=== PATIENT | female | born 1950 | race Asian ===

== ENCOUNTER → 2025-01-19 | Outpatient (CLI) | payer MEDICARE, MEDICAID, SELFPAY ==
[2025-01-19 08:44] LABS: Basophils % (Auto) 0 % (0-2.5); Eosinophils # (Auto) 0.1 Thou/mm3 (0.0-0.5); Eosinophils % (Auto) 2 % (0-10); Hematocrit 32.5 % (36.0-46.0); Hemoglobin 9.4 g/dL (12.0-16.0); Immature Granulocytes % (Auto) 1 % (0-0); Immature Granulocytes Auto 0.03 Thou/mm3 (0.00-0.00); Immature Reticulocyte Fraction 29.9 % (3.0-15.9); Lymphocytes # (Auto) 1.9 Thou/mm3 (1.0-4.8); Lymphocytes % (Auto) 34 % (10-50); Mean Corpuscular HGB Conc 28.9 g/dl (31.0-37.0); Mean Corpuscular Hemoglobin 18.8 pg (25.0-35.0); Mean Corpuscular Volume 65 fL (80-100); Monocytes # (Auto) 0.4 Thou/mm3 (0.0-0.8); Monocytes % (Auto) 7 % (0-12); Neutrophils # (Auto) 3.2 Thou/mm3 (1.8-7.7); Neutrophils % (Auto) 57 % (37-80); Nucleated Red Blood Cell % 0 /100 WBC (0); Platelet Count 245 Thou/mm3 (140-440); RDW Standard Deviation 51.8 fL (36.4-46.3); Reticulocyte % (Auto) 4.4 % (0.5-1.5); Reticulocyte Hgb Content 20.5 pg (28.0-35.0); White Blood Count 5.6 Thou/mm3 (3.6-11.0)
[2025-01-19 09:08] LABS: Folate > 24.00 ng/mL (>5.38); Vitamin B12 582 pg/mL (211-911)
[2025-01-19 09:11] LABS: Alanine Aminotransferase 14 U/L (10-49); Albumin, Serum 4.2 gm/dL (3.4-4.8); Albumin/Globulin Ratio 1.4 (1.2-2.2); Alkaline Phosphatase 54 U/L (46-116); Anion Gap 8 (7-16); Aspartate Amino Transferase 16 U/L (0-34); BUN/Creatinine Ratio 33 Ratio (12-20); Bilirubin,Total 2.2 mg/dL (0.3-1.2); Blood Urea Nitrogen 20 mg/dL (9-23); Calcium 9.3 mg/dL (8.3-10.6); Calcium (Corrected) 9.3 mg/dL (8.5-10.1); Carbon Dioxide 27.9 mMol/L (20.0-31.0); Chloride 105 mMol/L (98-107); Creatinine (Component) 0.6 mg/dL (0.6-1.3); Globulin 2.9 gm/dL (2.3-3.5); Glucose 124 mg/dL (74-106); Osmolality,Calculated 284 (275-295); Potassium 3.9 mMol/L (3.4-5.1); Sodium 141 mMol/L (136-145); Total Protein 7.1 gm/dL (5.7-8.2); eGFR > 60 See Note
[2025-01-19 09:20] LABS: Ferritin 482 ng/mL (7.3-270.7); Iron 204 mcg/dL (50-170); Percent Iron Saturation 73 % (20-55); Total Iron Binding Capacity 279 mcg/dL (250-425); Unsaturated Iron Binding 75 (225-295)
[2025-01-19 14:27] LABS: Path Review Blood Smear Sent to Pathologist
== END | disposition home or self-care (01) ==
LOC: COPL 07:35
PROVIDERS: PCP Family Medicine; Referring Provider Nurse Practitioner Family; Visit Provider Nurse Practitioner Family
DX: D64.9 Anemia, unspecified (principal)
CPT/HCPCS: 36415; 80053; 82607; 82728; 82746; 83540; 83550; 85025; 85046

== ENCOUNTER 2025-01-25 08:56 | Outpatient (RCR) | payer MEDICARE, MEDICAID, SELFPAY | END 2025-01-28 23:59 | disposition home or self-care (01) | LOC: SCTC 08:56 | PROVIDERS: PCP Family Medicine; Referring Provider Family Medicine; Visit Provider Nurse Practitioner Family | DX: D50.9 Iron deficiency anemia, unspecified (principal); D56.0 Alpha thalassemia | CPT/HCPCS: 99212; G0463 ==

== ENCOUNTER → 2025-02-21 | Outpatient (CLI) | payer MEDICARE, MEDICAID, SELFPAY ==
[2025-02-21 08:47] LABS: Basophils % (Auto) 1 % (0-2.5); Eosinophils # (Auto) 0.1 Thou/mm3 (0.0-0.5); Eosinophils % (Auto) 2 % (0-10); Hematocrit 33.4 % (36.0-46.0); Hemoglobin 9.4 g/dL (12.0-16.0); Immature Granulocytes % (Auto) 0 % (0-0); Immature Granulocytes Auto 0.02 Thou/mm3 (0.00-0.00); Immature Reticulocyte Fraction 27.6 % (3.0-15.9); Lymphocytes # (Auto) 1.8 Thou/mm3 (1.0-4.8); Lymphocytes % (Auto) 33 % (10-50); Mean Corpuscular HGB Conc 28.1 g/dl (31.0-37.0); Mean Corpuscular Hemoglobin 18.8 pg (25.0-35.0); Mean Corpuscular Volume 67 fL (80-100); Monocytes # (Auto) 0.4 Thou/mm3 (0.0-0.8); Monocytes % (Auto) 7 % (0-12); Neutrophils # (Auto) 3.2 Thou/mm3 (1.8-7.7); Neutrophils % (Auto) 57 % (37-80); Nucleated Red Blood Cell % 0 /100 WBC (0); Platelet Count 264 Thou/mm3 (140-440); Reticulocyte % (Auto) 4.1 % (0.5-1.5); White Blood Count 5.5 Thou/mm3 (3.6-11.0)
[2025-02-21 09:05] LABS: Folate > 24.00 ng/mL (>5.38); Vitamin B12 605 pg/mL (211-911)
[2025-02-21 09:07] LABS: Alanine Aminotransferase 14 U/L (10-49); Albumin, Serum 4.3 gm/dL (3.4-4.8); Albumin/Globulin Ratio 1.4 (1.2-2.2); Alkaline Phosphatase 51 U/L (46-116); Anion Gap 9 (7-16); Aspartate Amino Transferase 16 U/L (0-34); BUN/Creatinine Ratio 28 Ratio (12-20); Bilirubin,Total 2.4 mg/dL (0.3-1.2); Blood Urea Nitrogen 14 mg/dL (9-23); Calcium 9.6 mg/dL (8.3-10.6); Calcium (Corrected) 9.6 mg/dL (8.5-10.1); Carbon Dioxide 29.5 mMol/L (20.0-31.0); Chloride 105 mMol/L (98-107); Creatinine (Component) 0.5 mg/dL (0.6-1.3); Globulin 3.1 gm/dL (2.3-3.5); Glucose 120 mg/dL (74-106); Osmolality,Calculated 286 (275-295); Potassium 3.7 mMol/L (3.4-5.1); Sodium 143 mMol/L (136-145); Total Protein 7.4 gm/dL (5.7-8.2); eGFR > 60 See Note
[2025-02-21 09:14] LABS: Ferritin 543 ng/mL (7.3-270.7); Iron 126 mcg/dL (50-170); Percent Iron Saturation 44 % (20-55); Total Iron Binding Capacity 285 mcg/dL (250-425); Unsaturated Iron Binding 159 (225-295)
== END | disposition home or self-care (01) ==
LOC: SCTO 07:36
PROVIDERS: PCP Family Medicine; Referring Provider Nurse Practitioner Family; Visit Provider Nurse Practitioner Family
DX: D64.9 Anemia, unspecified (principal)
CPT/HCPCS: 36415; 80053; 82607; 82728; 82746; 83540; 83550; 85025; 85046

== ENCOUNTER 2025-02-22 14:11 | Outpatient (RCR) | payer MEDICARE, MEDICAID, SELFPAY | END 2025-02-28 23:59 | disposition home or self-care (01) | LOC: SCTC 14:11 | PROVIDERS: PCP Family Medicine; Referring Provider Nurse Practitioner Family; Visit Provider Nurse Practitioner Family | DX: D56.0 Alpha thalassemia (principal) | CPT/HCPCS: 99212; G0463 ==

== ENCOUNTER → 2025-02-24 | Outpatient (CLI) | payer MEDICARE, MEDICAID, SELFPAY ==
[2025-02-24 14:11] LABS: Misc Send Out* See Sep Rpt
[2025-02-24 15:35] LABS: Basophils % (Auto) 0 % (0-2.5); Eosinophils # (Auto) 0.2 Thou/mm3 (0.0-0.5); Eosinophils % (Auto) 2 % (0-10); Hematocrit 32.3 % (36.0-46.0); Hemoglobin 9.1 g/dL (12.0-16.0); Immature Granulocytes % (Auto) 0 % (0-0); Immature Granulocytes Auto 0.02 Thou/mm3 (0.00-0.00); Lymphocytes # (Auto) 2.4 Thou/mm3 (1.0-4.8); Lymphocytes % (Auto) 33 % (10-50); Mean Corpuscular HGB Conc 28.2 g/dl (31.0-37.0); Mean Corpuscular Volume 67 fL (80-100); Monocytes # (Auto) 0.5 Thou/mm3 (0.0-0.8); Monocytes % (Auto) 7 % (0-12); Neutrophils % (Auto) 57 % (37-80); Nucleated Red Blood Cell % 0 /100 WBC (0); Platelet Count 278 Thou/mm3 (140-440); RDW Standard Deviation 53.3 fL (36.4-46.3); Red Blood Count 4.79 Miln/mm3 (4.00-5.20); White Blood Count 7.1 Thou/mm3 (3.6-11.0)
[2025-02-24 16:17] LABS: Alanine Aminotransferase 19 U/L (10-49); Albumin, Serum 4.2 gm/dL (3.4-4.8); Albumin/Globulin Ratio 1.5 (1.2-2.2); Alkaline Phosphatase 52 U/L (46-116); Anion Gap 11 (7-16); Aspartate Amino Transferase 20 U/L (0-34); BUN/Creatinine Ratio 20 Ratio (12-20); Bilirubin,Total 2.5 mg/dL (0.3-1.2); Blood Urea Nitrogen 14 mg/dL (9-23); Calcium 9.2 mg/dL (8.3-10.6); Calcium (Corrected) 9.2 mg/dL (8.5-10.1); Carbon Dioxide 29.1 mMol/L (20.0-31.0); Chloride 103 mMol/L (98-107); Creatinine (Component) 0.7 mg/dL (0.6-1.3); Globulin 2.8 gm/dL (2.3-3.5); Glucose 178 mg/dL (74-106); Osmolality,Calculated 289 (275-295); Potassium 3.6 mMol/L (3.4-5.1); Sodium 143 mMol/L (136-145); eGFR > 60 See Note
== END | disposition home or self-care (01) ==
LOC: SCTO 13:45
PROVIDERS: PCP Family Medicine; Referring Provider Nurse Practitioner Family; Visit Provider Nurse Practitioner Family
DX: D64.9 Anemia, unspecified (principal)
CPT/HCPCS: 36415; 80053; 81256; 81257; 83020; 85014; 85018; 85025; 85041

== ENCOUNTER → 2025-03-09 | Outpatient (CLI) | payer MEDICARE, MEDICAID, SELFPAY ==
--- NOTE | 2025-03-09 10:30 | XR_ITS ---
Examination: MRI abdomen without intravenous contrast. Exam date and time: March 09, 2025 1140 hrs. Indications iron overload Technique: Multiple axial, sagittal and coronal images of the abdomen have been obtained with the Siemens high-resolution 1.5 [place] MRI scanner. Images obtained included T2 weighted fat suppressed sagittal sections, TR 3500, TE 46, T2 weighted coronal fat suppressed images, TR 3050, TE 84, T2-weighted transverse fat suppressed images, TR 30-60, TE 63, proton density transverse images, TR 4720, TE 46, and T1 weighted coronal images, TR 560, TE 13. Findings: Hepatomegaly 16 cm with marked decrease signal intensity on the precontrast images consistent with iron deposition No focal liver lesions No gallstones Spleen not enlarged No extra hepatic biliary tract dilatation No pancreatic mass or peripancreatic edema No ascites No hydronephrosis Impression: Diffuse iron deposition in the liver
== END | disposition home or self-care (01) ==
LOC: SMRI 09:47
PROVIDERS: PCP Family Medicine; Referring Provider Nurse Practitioner Family; Visit Provider Nurse Practitioner Family
DX: D64.9 Anemia, unspecified (principal)
CPT/HCPCS: 74181

== ENCOUNTER → 2025-04-18 | Outpatient (CLI) | payer MEDICARE, MEDICAID, SELFPAY | END | disposition home or self-care (01) | LOC: SCTO 06:45 | PROVIDERS: PCP Family Medicine; Referring Provider Nurse Practitioner Family; Visit Provider Nurse Practitioner Family | DX: D64.9 Anemia, unspecified (principal) | CPT/HCPCS: 36415; 82105 ==

== ENCOUNTER 2025-04-19 13:06 | Outpatient (RCR) | payer MEDICARE, MEDICAID, SELFPAY | END 2025-04-30 23:59 | disposition home or self-care (01) | LOC: SCTC 13:06 | PROVIDERS: PCP Family Medicine; Referring Provider Family Medicine; Visit Provider Nurse Practitioner Family | DX: D56.0 Alpha thalassemia (principal); E83.119 Hemochromatosis, unspecified | CPT/HCPCS: 99212; G0463 ==

== ENCOUNTER 2025-05-03 23:43 | Inpatient (IN) | payer MEDICARE, MEDICAID, SELFPAY ==
[2025-05-03 23:48] VITALS: O2SAT 91
[2025-05-03 23:50] VITALS: BP 148/86; PULSE 84; RESP 22; TEMP 37.1; O2SAT 91; BMI 26.7
[2025-05-04] VITALS (17 sets, daily range): BP systolic 135–165; BP diastolic 65–91; PULSE 70–104; RESP 14–94; TEMP 36.2–37.1; O2SAT 91–99; BMI 25.7
--- NOTE | 2025-05-04 00:05 | XR_ITS ---
Examination: AP chest single view Technique one AP portable upright chest single view Date and time: May 04, 2025 12:42 AM Comparison April 10, 2024 INDICATIONS: Cough and shortness of breath for one week FINDINGS: Mild accentuation right perihilar markings and increased markings right base Mild opacity in the left upper lobe and possibly in the lingular segment Mild prominence left ventricle Ectatic thoracic aorta Impression : Soft areas of bilateral pneumonia on the current study
--- NOTE | 2025-05-04 00:05 | EKG_ITS ---
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
--- NOTE | 2025-05-04 00:07 | PD.EDRME ---
Rapid Medical Screening Exam RME Arrival date/time: 05/03/25 23:43 75F with history of Alpha Thalassemia, CAD and afib presents to ED with 1 week of cough and SOB. Patient is on day 5 of a Z-bravo and hasn't improved. Chief Complaint: Shortness of Breath/Dyspnea Time Seen by Provider: 05/04/25 00:39 Vital signs: Vital Signs Temperature 98.7 F 05/03/25 23:50 Pulse Rate 84 05/03/25 23:50 Respiratory Rate 22 H 05/03/25 23:50 Blood Pressure 148/86 H 05/03/25 23:50 Pulse Oximetry (%) 91 L 05/03/25 23:50 Oxygen Delivery Method Room Air 05/03/25 23:50
[2025-05-04] MEDS: ALBUTEROL/IPRATROPIUM (Duoneb) RT SOL 3 ML NEBU INH ×6 (00:31→22:33)
[2025-05-04 00:49] LABS: Lactate (Lactic Acid) 1.1 mMol/L (0.4-2.0)
[2025-05-04 01:03] LABS: Basophils % (Auto) 0 % (0-2.5); Eosinophils # (Auto) 0.1 Thou/mm3 (0.0-0.5); Eosinophils % (Auto) 1 % (0-10); Hematocrit 29.5 % (36.0-46.0); Hemoglobin 8.9 g/dL (12.0-16.0); Immature Granulocytes % (Auto) 0 % (0-0); Immature Granulocytes Auto 0.02 Thou/mm3 (0.00-0.00); Lymphocytes # (Auto) 2.4 Thou/mm3 (1.0-4.8); Lymphocytes % (Auto) 42 % (10-50); Mean Corpuscular HGB Conc 30.2 g/dl (31.0-37.0); Mean Corpuscular Hemoglobin 18.6 pg (25.0-35.0); Mean Corpuscular Volume 62 fL (80-100); Monocytes # (Auto) 0.7 Thou/mm3 (0.0-0.8); Monocytes % (Auto) 12 % (0-12); Neutrophils # (Auto) 2.6 Thou/mm3 (1.8-7.7); Neutrophils % (Auto) 45 % (37-80); Nucleated Red Blood Cell % 0 /100 WBC (0); Platelet Count 191 Thou/mm3 (140-440); RDW Standard Deviation 45.7 fL (36.4-46.3); Red Blood Count 4.78 Miln/mm3 (4.00-5.20); White Blood Count 5.7 Thou/mm3 (3.6-11.0)
[2025-05-04 01:24] LABS: B-Type Natriuretic Peptide 26 pg/mL (0-100)
--- NOTE | 2025-05-04 01:27 | PD.EDSOB ---
ED SOB =RME/HPI General Chief Complaint: Shortness of Breath/Dyspnea Stated Complaint: SOB Time Seen by Provider: 05/04/25 00:39 Arrival date/time: 05/03/25 23:43 RME / HPI RME / HPI Narrative: 05/03/25 23:43 75F with history of Alpha Thalassemia, CAD and afib presents to ED with 1 week of cough and SOB. Patient is on day 5 of a Z-bravo and hasn't improved. Dr. Rothman?s Main ED Evaluation: 75 y/o female with Hx of HTN, A Fib, and a-Thalassemia presents to ED c/o shortness of breath, productive cough, sweats, and generalized weakness x 1 week. Patient was seen on Friday and prescribed Zithromax and has not yet completed regimen. Denies chest pain, abdominal pain, or headache. Also denies history of Asthma or COPD. No other concerns or complaints expressed at this time. Related Data Home Medications ?Medication ?Instructions ?Recorded ?Confirmed metoprolol succinate 50 mg 25 mg PO QDAY hypertension 12/31/22 05/04/25 tablet,extended release 24 hr losartan 25 mg tablet 25 mg PO DAILY 05/04/25 05/04/25 Allergies Allergy/AdvReac Type Severity Reaction Status Date / Time Iodinated Contrast Media Allergy Intermediate Rash Verified 05/04/25 21:08 adhesive tape Allergy Mild Rash Verified 05/04/25 21:08 amoxicillin Allergy Mild rash Verified 05/04/25 21:08 sulfamethoxazole Allergy Mild dry mouth Verified 05/04/25 21:08 trimethoprim Allergy Mild dry mouth Verified 05/04/25 21:08 Review of Systems Review of Systems Systems Reviewed: All systems reviewed, normal except as documented Past Medical History Past Medical History CARDIAC: Positive Cardiac Disorders, Atrial Fibrillation and Hypertension GENITOURINARY: Positive Genitourinary Disorders and Kidney Stones MUSCULOSKELETAL: Positive Musculoskeletal Disorders and Osteoporosis HEMATOLOGIC: Positive Blood Disorders, Anemia and Thalassemia OTHER HISTORY: Positive Autoimmune Disease and Chicken Pox Family History FAMILY HISTORY: Positive Family Respiratory Disorders, Family Cardiac Disorders and Family Cancer Surgical History SURGICAL: Positive Lumpectomy ED Exam Narrative Physical exam: GENERAL APPEARANCE: alert and oriented x 4, well-developed, well-nourished, no acute distress VITALS: All vitals were reviewed and the pulse ox is 99% on room air, which is normal according to my interpretation. HEENT: Normocephalic, atraumatic; pupils equal, round, reactive to light; EOMI; mucous membranes pink, moist; oropharynx clear NECK: Supple LUNGS: Rales, rhonchi, and mild wheezes to the bilateral bases, right worse than the left HEART: Tachycardic in 110's when speaking, regular rhythm; normal S1, S2; no murmurs ABDOMEN: non distended; normal BS; soft, no tenderness, no guarding, no rebound; no masses, no organomegaly, no hernia BACK: no CVA tenderness EXTREMITIES: atraumatic; no edema NEUROLOGIC: awake; alert and oriented x4; cranial nerves II-XII grossly intact; no focal sensory or motor deficits PSYCHIATRIC: appropriate mood and affect SKIN: warm, dry, normal color; no rashes Course Course Course Narrative: CXR is ordered for determining the etiology of shortness of breath. Quality Measures none Orders Category Date Time Status Bedside Blood Glucose NOW Care 05/04/25 01:30 Active Bedside COVID-19 Antigen Test NOW Care 05/04/25 00:09 Active Bedside Influenza A&B Antigen Test NOW Care 05/04/25 00:09 Completed Continuous Pulse Oximetry NOW Care 05/04/25 01:31 Completed EKG (ED ONLY) *Do not use* NOW Care 05/04/25 00:05 Completed Insert IV NOW Care 05/04/25 00:05 Active Insert IV NOW Care 05/04/25 01:30 Active EKG (ED Only) Stat Exams 05/04/25 00:05 Draft XR chest 1V Stat Exams 05/04/25 01:29 Completed XR chest 1V portable Stat Exams 05/04/25 00:05 Completed B-Type Natriuretic Peptide Stat Lab 05/04/25 00:38 Completed Blood Culture (Lab) Stat Lab 05/04/25 01:50 Results CBC Stat Lab 05/04/25 00:38 Completed Comprehensive Metabolic Panel Stat Lab 05/04/25 00:38 Completed Lactate (Lactic Acid) Stat Lab 05/04/25 00:38 Completed Partial Thromboplastin Time Stat Lab 05/04/25 01:52 Completed Procalcitonin Stat Lab 05/04/25 00:38 Completed Prothrombin Time with INR Stat Lab 05/04/25 01:52 Completed Troponin I Stat Lab 05/04/25 00:38 Completed Urinalysis Stat Lab 05/04/25 01:49 Completed Urine Culture Stat Lab 05/04/25 01:49 Received Albuterol/Ipratr Rt Emma [Duoneb Rt Emma] Med 05/04/25 00:08 Discontinued 3 ml INH X1 ONE Doxycycline Inj [Vibramycin Inj] 100 mg Med 05/04/25 01:34 Discontinued Sodium Chloride 0.9% (Pop) [NS 0.9% mini bag] 100 ml IV X1 MethylPREDNISolone.* [SoluMEDROL Inj] Med 05/04/25 01:28 Discontinued 125 mg IVP X1 ONE Oseltamivir [Tamiflu] Med 05/04/25 02:46 Discontinued 75 mg PO X1 ONE Sodium Chloride 0.9% 1000 ml [Ns] 1,000 ml Med 05/04/25 01:34 Discontinued IV 999 mls/hr cefTRIAXone/D5w 1gm IV premix [Rocephin/D5w 1gm IV Med 05/04/25 06:15 Discontinued premix] 1 gm in 50 ml IV X1 Oxygen Delivery NOW RT 05/04/25 00:05 Active Vital Signs Vital signs: Vital Signs Temperature 98.7 F 05/03/25 23:50 Pulse Rate 84 05/03/25 23:50 Respiratory Rate 22 H 05/03/25 23:50 Blood Pressure 148/86 H 05/03/25 23:50 Pulse Oximetry (%) 91 L 05/03/25 23:50 Oxygen Delivery Method Room Air 05/03/25 23:50 Shortness of Breath / Dyspnea MDM Narrative MDM Narrative:: Scribe Attestation: Jeanette Blum am scribing for and in the presence of Dr. Rothman. Provider Notation: Although this document has been carefully reviewed, there may still be some phonetic and other typographical errors.? These errors are purely grammatical due to imperfections in the software program and should not be construed in any way to? compromise the substance of the patient's medical care during this visit. Patient data External records reviewed:: [facility] previous records (Reviewed prior ED records from 04/10/24. Patient was seen for Dizziness.) Clinical information provided by:: patient Social determinants that could affect healthcare access:: none Patient has the following chronic illnesses:: Atrial Fibrillation, Hypertension, Kidney Stones, Osteoporosis, Anemia and Thalassemia How is presenting disease/condition affected by chronic disease/condition?: exacerbated by Evaluation data The following diagnostics were reviewed and interpreted by me:: lab results, radiology exam(s) and EKG tracing(s) Lab and/or radiology exams considered but not ordered:: None Interpretation Summary: RADIOLOGY Chest X-Ray: CXR shows normal cardiac silhouette, normal sharp diaphragmatic edge, BL lower lobe infiltrates, normal costophrenic angles, according to my interpretation. LABS Hematology: Hgb 8.9, Hct 29.5%, MCV 62, MCH 18.6, MCHC 30.2, Immature Gran # 0.02. Chemistry: Estim Creat Clear calc 51.6, BUN/Creatinine Ratio 25, Glucose 152, Total Bilirubin 2.5, AST 37. Medications / Prescriptions Medications or Prescriptions considered but not ordered:: None Medication administrations:: Medication Administration History Acetaminophen (Acetaminophen 325 Mg Tablet) 650 mg PO Q6H PRN; Protocol PRN Reason: pain and Fever >100.4 Stop: 06/03/25 04:01 Hydrocodone Bitart/Acetaminophen (Hydrocodone/Apap 5/325 Tablet) 1 tab PO Q4HR PRN PRN Reason: PAIN SCALE 4-10(Mod-Sev Stop: 05/09/25 04:01 Albuterol/Ipratropium (Albuterol/Ipratropium (Duoneb) Rt Emma 3 Ml Nebu) 3 ml INH Q4HRRT CASSI Stop: 06/03/25 06:59 Last Admin: 05/05/25 02:35 Dose: 3 ml Documented By: Admin: 05/04/25 22:33 Dose: 3 ml Documented By: Admin: 05/04/25 19:06 Dose: 3 ml Documented By: Admin: 05/04/25 14:19 Dose: 3 ml Documented By: Admin: 05/04/25 10:45 Dose: 3 ml Documented By: Admin: 05/04/25 06:50 Dose: 3 ml Documented By: JORDAN Azithromycin (Azithromycin 250 Mg Tablet) 500 mg PO QDAY [facility] Stop: 05/11/25 08:59 Last Admin: 05/04/25 08:32 Dose: 500 mg Documented By: LUZ MARIA Guaifenesin (Guaifenesin Syrup 200 Mg/10 Ml Udc) 100 mg PO TID [facility]; Protocol Stop: 06/03/25 13:59 Last Admin: 05/04/25 21:08 Dose: 100 mg Documented By: Admin: 05/04/25 14:15 Dose: 100 mg Documented By: LUZ MARIA Heparin Sodium (Porcine) (Heparin Sod Inj 5000 Unit/Ml Vial) 5,000 unit SC Q8HR [facility] Stop: 05/18/25 05:59 Last Admin: 05/04/25 21:09 Dose: 5,000 unit Documented By: DEEPTHI Co-signed By: VINCE Admin: 05/04/25 14:15 Dose: 5,000 unit Documented By: LUZ MARIA Co-signed By: EUNICE Admin: 05/04/25 06:26 Dose: 5,000 unit Documented By: Co-signed By: MADAY Losartan Potassium (Losartan Potassium 25 Mg Tablet) 25 mg PO HS [facility] Stop: 06/03/25 20:59 Last Admin: 05/04/25 21:02 Dose: Not Given Documented By: DEEPTHI Non-Admin Reason: Other, see note Comments: at 1523, medication was already given per dayshift nurse. Metoprolol Succinate (Metoprolol Succinate Xl 25 Mg Tabcr) 25 mg PO QDAY [facility] Stop: 06/03/25 15:14 Last Admin: 05/04/25 15:19 Dose: 25 mg Documented By: LUZ MARIA Ondansetron HCl (Ondansetron Inj 2 Mg/Ml Inj 2 Ml) 4 mg IVP Q6H PRN; Protocol PRN Reason: NAUSEA OR VOMITING Stop: 06/03/25 04:01 Oseltamivir Phosphate (Oseltamivir 75 Mg Capsule) 75 mg PO BID [facility] Stop: 05/11/25 20:59 Last Admin: 05/04/25 21:08 Dose: 75 mg Documented By: DEEPTHI Discontinued Medications Albuterol/Ipratropium (Albuterol/Ipratropium (Duoneb) Rt Emma 3 Ml Nebu) 3 ml INH X1 ONE Stop: 05/04/25 00:09 Last Admin: 05/04/25 00:31 Dose: 3 ml Documented By: NIRMALA Ceftriaxone Sodium/Dextrose (Rocephin/D5w 1gm Iv Premix) 1 gm in 50 mls @ 100 mls/hr IV X1 ONE Stop: 05/04/25 06:44 Last Admin: 05/04/25 06:26 Dose: 100 mls/hr Documented By: Sodium Chloride (Ns) 1,000 mls @ 999 mls/hr IV .Q1H1M ONE Stop: 05/04/25 02:34 Last Infusion: 05/04/25 02:56 Dose: Infused Documented By: Admin: 05/04/25 01:52 Dose: 999 mls/hr Documented By: CVL Doxycycline Hyclate 100 mg/ (Sodium Chloride) 100 mls @ 100 mls/hr IV X1 ONE Stop: 05/04/25 02:33 Last Infusion: 05/04/25 02:55 Dose: Infused Documented By: Admin: 05/04/25 02:05 Dose: 100 mls/hr Documented By: BEATRIZ Losartan Potassium (Losartan Potassium 25 Mg Tablet) 25 mg PO QDAY [facility] Stop: 06/03/25 15:14 Last Admin: 05/04/25 15:23 Dose: 25 mg Documented By: LUZ MARIA Methylprednisolone Sodium Succinate (Methylprednisolone Sod Succ 62.5 Mg/Ml 2ml Vial) 125 mg IVP X1 ONE Stop: 05/04/25 01:29 Last Admin: 05/04/25 01:49 Dose: 125 mg Documented By: CVL Oseltamivir Phosphate (Oseltamivir 75 Mg Capsule) 75 mg PO X1 ONE Stop: 05/04/25 02:47 Last Admin: 05/04/25 03:12 Dose: 75 mg Documented By: BEATRIZ Oseltamivir Phosphate (Oseltamivir 6 Mg/Ml) 75 mg PO QDAY [facility] Stop: 05/12/25 08:59 Potassium Chloride (Potassium Chloride 20 Meq Tabcr) 40 meq PO X1 ONE Stop: 05/04/25 08:09 Last Admin: 05/04/25 08:32 Dose: 40 meq Documented By: LUZ MARIA Sodium Chloride (Sodium Chloride Rt 10% 15 Ml Nebu) 5 ml INH X1 ONE Stop: 05/04/25 05:14 See above if any Consultations Consultation(s) initiated? (list below): Yes Consultation #1 (Physician, Specialty, Details): Dr. Douglas made aware of the patient?s HPI, PMHx, lab and/or radiology results. Treatment plan was discussed. Will admit for further evaluation and management. Accepts patient for admission. Time: 02:58 Diagnosis Shortness of Breath Differential Diagnosis: congestive heart failure, community acquired pneumonia, pulmonary embolism and other (Bronchitis, Bronchiolitis) Most likely diagnosis given after review of the tests above:: See clinical impression below Admission Indicated Admission indicated?: indicated Explain why admission is indicated or not indicated:: Hypoxia, Pneumonia, Sepsis Admission Request Was there a request for admission?: Yes Admission Attestation Admission request attestation: Discussed case with [] from Hospitalist service regarding admission. Discussed patients ED course, exam findings, labs, and radiology results. The Hospitalist [agrees,declines] to accept the patient for admission. Disposition Plan Disposition Plan: Admit Critical Care Time Critical Care Time Critical Care Time: Yes Total Critical Care Time (min.): 60 Attestation: The high probability of sudden, clinically significant deterioration in the patient?s condition required the highest level of my preparedness to intervene urgently. The services I provided to this patient were to treat and/or prevent clinically significant deterioration. Services included the following: chart data review, reviewing nursing notes and/or old charts, documentation time, small business consultant collaboration regarding findings and treatment options, medication orders and management, direct patient care, vital sign assessments and ordering, interpreting and reviewing diagnostic studies and lab tests. Aggregate critical care time includes only time during which I was engaged in work directly related to the patient?s care, as described above, whether at bedside or elsewhere in the Emergency Department. It did not include time spent performing other reported procedures or the services of residents, students, nurses or physician assistants. Discharge Plan Plan Patient Disposition: Admit Acute Care w/in Hospital Discharge Disposition comment: MED TELE Patient condition on transfer: Stable Problem List Clinical Impression: Hypoxia, Pneumonia, Influenza A, Sepsis
--- NOTE | 2025-05-04 01:29 | XR_ITS ---
Examination: Lateral chest single view TECHNIQUE: Upright lateral chest single view Date and time: May 04, 2025 0134 hours INDICATIONS: Coughing one week. FINDINGS: Opacity in the lingular segment and anterior segment left upper lobe consistent with pneumonia Mild prominence of ventricles IMPRESSION: Pneumonia in the lingular segment left upper lobe and anterior segment left upper lobe
[2025-05-04 01:32] LABS: Alanine Aminotransferase 24 U/L (10-49); Albumin, Serum 4.4 gm/dL (3.4-4.8); Albumin/Globulin Ratio 1.5 (1.2-2.2); Alkaline Phosphatase 51 U/L (46-116); Anion Gap 13 (7-16); Aspartate Amino Transferase 37 U/L (0-34); BUN/Creatinine Ratio 25 Ratio (12-20); Bilirubin,Total 2.5 mg/dL (0.3-1.2); Blood Urea Nitrogen 20 mg/dL (9-23); Calcium 8.7 mg/dL (8.3-10.6); Calcium (Corrected) 8.7 mg/dL (8.5-10.1); Carbon Dioxide 26.3 mMol/L (20.0-31.0); Chloride 104 mMol/L (98-107); Creatinine (Component) 0.8 mg/dL (0.6-1.3); Estimated Creatinine Clearance 51.6 mL/min (>60); Globulin 2.9 gm/dL (2.3-3.5); Glucose 152 mg/dL (74-106); Osmolality,Calculated 290 (275-295); Potassium 3.8 mMol/L (3.4-5.1); Procalcitonin 0.13 ng/ml (0.0-0.49); Sodium 143 mMol/L (136-145); Total Protein 7.3 gm/dL (5.7-8.2); Troponin I < 0.020 ng/mL (0.0-0.045); eGFR > 60 See Note
[2025-05-04] MEDS: MethylPREDNISolone SOD SUCC 62.5 MG/ML 2ML VIAL 125 MG IVP (01:49)
[2025-05-04] MEDS: SODIUM CHLORIDE 0.9% 1000 ML 1,000 ML 999 ML IV (01:52)
[2025-05-04 02:03] LABS: Collection Type, Urine Clean Catch
[2025-05-04] MEDS: DOXYCYCLINE INJ 100 MG in SODIUM CHLORIDE 0.9% (POP) 100 ML IV (02:05)
[2025-05-04 02:07] LABS: Bilirubin,Urine Negative (Negative); Blood,Urine 2+ (Negative); Clarity,Urine Clear (Clear/Hazy); Color,Urine Yellow (Lt Yel-Yel); Glucose, Urine Negative (Negative); Ketones,Urine Trace (Negative); Leukocyte Esterase,Urine Negative (Negative); Nitrite,Urine Negative (Negative); Protein,Urine 1+ (Neg - Trace); RBC,Urine 6 /hpf (0-3); Specific Gravity,Urine 1.023 (1.001-1.035); Squamous Epithelial Cell,Urine 2 /hpf (0-5); Urobilinogen,Urine Negative mg/dL (0.0-1.0); WBC,Urine 2 /hpf (0-5)
[2025-05-04 02:20] LABS: Partial Thromboplastin Time 30.8 Seconds (22.0-36.0); Prothrombin Time 11.1 Seconds (9.0-12.2)
[2025-05-04] MEDS: OSELTAMIVIR 75 MG CAPSULE PO ×2 (03:12→21:08)
--- NOTE | 2025-05-04 04:09 | PD.RESHP ---
Documentation for date of: 05/04/25 HPI History of Present Illness Chief complaint: SOB and cough History of present illness: 75-year-old female with past medical history of alpha thalassemia, osteoporosis, hyperlipidemia, hypertension, and questionable A-fib was admitted to the hospital on 05/04/2025 after coming to the ED with complaints of shortness of breath and productive cough since last Friday prior to admission. On assessment patient stated that about a week ago she started having shortness of breath with productive cough of yellowish sputum. She stated that she did not have any sick contacts and she lives with her nephew. She also mentioned that she was feeling pretty weak and like she was going to pass out, but did not pass out at any moment. She also stated that she did have some pleuritic chest pain in the initial days, not anymore and also stated that she had fevers and chills. Patient does not smoke and does not have secondhand exposure of area. In the ED patient was hypoxic and even after breathing treatments and steroids patient was still hypoxic in the low 90s on 2 L of nasal cannula. Patient denies any change in bowel movements, dysuria, abdominal pain, nausea or vomiting. ED course: Initially came in hypertensive, hypoxic, and afebrile. Initial labs were relevant for anemia and positive for influenza A. Initial imaging included chest x-ray which appears to have a consolidation on the left lower lobe and possibly retrocardiac. Initial EKG showed sinus rhythm. In the ED patient received Tamiflu, steroids, and doxycycline. PMH: As above Social Hx: Denies any smoking, drugs, alcohol Surgical Hx: Appendectomy and left breast cyst removal Review of Systems Review of Systems Narrative Review of Systems: Constitutional: Denies sweats, Denies weight loss/gain, Admita fever, Admits chills. HEENT: Denies hearing loss, Denies ear pain, Denies postnasal drip, Denies double vision, Denies blurry vision. Respiratory: Admits shortness of breath, Admits cough, Denies wheezing. Cardiovascular: Denies chest pain, Denies palpitations, Denies sudden loss of consciousness. GI: Denies blood in stool, Denies constipation, Denies abdominal pain, Denies difficulty swallowing, Denies nausea or vomit. : Denies urinary incontinence, Denies pain while urinating, Denies increased urinary frequency. MSK: Denies joint pain, Denies joint swelling, Denies numbness. Skin: Denies rash, Denies itching, Denies easy bruising. Neuro: Denies headaches, Denies dizziness, Denies seizures. Past Medical History Past Medical History CARDIAC: Positive Cardiac Disorders, Atrial Fibrillation and Hypertension GENITOURINARY: Positive Genitourinary Disorders and Kidney Stones MUSCULOSKELETAL: Positive Musculoskeletal Disorders and Osteoporosis HEMATOLOGIC: Positive Blood Disorders, Anemia and Thalassemia OTHER HISTORY: Positive Autoimmune Disease and Chicken Pox Family History FAMILY HISTORY: Positive Family Respiratory Disorders, Family Cardiac Disorders and Family Cancer Surgical History SURGICAL: Positive Lumpectomy Exam Vital Signs Temp Pulse Resp BP Pulse Ox O2 Del Method O2 Flow Rate 98.6 F 85 14 148/78 H 99 Room Air 2 05/04/25 02:00 05/04/25 02:00 05/04/25 02:00 05/04/25 02:00 05/04/25 02:00 05/04/25 02:00 05/04/25 02:00 Narrative Exam General: A/O x3, no acute distress Eyes: PERRL, EOMI. Anicteric, vision grossly intact. Ears: No ear pain, no ear discharge, Hearing grossly intact. Nose: No nasal discharge. Mouth/Throat: Moist mucous membranes, no redness, no lesions. Neck: Neck supple, non-tender, no cervical lymphadenopathy. Lungs: Mild expiratory wheezing and rhonchi RADHA, No accessory muscle use. Cardio: Normal S1/S2, regular rhythm, no murmurs, no JVD Abdomen: Soft, non-tender, no palpable masses, peristalsis present, no guarding or rebound. Extremities: Symmetrical, no significant deformities, no peripheral edema , non-tender, peripheral pulses presents. Skin: No rashes, no lesions, warm to touch. Neuro: No focal neurological deficits. motor and sensory intact Psych: Cooperative, appropriate mood and effect. Results: Labs 05/04/25 04:20 05/04/25 04:20 Labs: Short CBC 05/04/25 Range/Units 00:38 WBC 5.7 (3.6-11.0) Thou/mm3 Hgb 8.9 L (12.0-16.0) g/dL Hct 29.5 L (36.0-46.0) % Plt Count 191 (140-440) Thou/mm3 BMP 05/04/25 00:38 Sodium 143 Potassium 3.8 Chloride 104 Carbon Dioxide 26.3 BUN 20 Creatinine 0.8 Glucose 152 H Calcium 8.7 Cardiac Enzymes 05/04/25 Range/Units 00:38 Troponin I < 0.020 (0.0-0.045) ng/mL Liver Function 05/04/25 Range/Units 00:38 Total Bilirubin 2.5 H (0.3-1.2) mg/dL AST 37 H (0-34) U/L ALT 24 (10-49) U/L Alkaline Phosphatase 51 (46-116) U/L Albumin 4.4 (3.4-4.8) gm/dL Urine 05/04/25 Range/Units 01:49 Urine Color Yellow (Lt Yel-Yel) Urine Clarity Clear (Clear/Hazy) Urine pH 6.0 (5.0-7.0) Ur Specific [place] 1.023 (1.001-1.035) Urine Protein 1+ A (Neg - Trace) Urine Glucose (UA) Negative (Negative) Quality Measures Quality Measures none Advance care planning discussed with:: patient Medications Home Medications and Allergies Home Medications ?Medication ?Instructions ?Recorded ?Confirmed ?Type folic acid 1 mg tablet 1 mg PO QDAY #0 tabs 11/12/17 12/31/22 History alendronate 70 mg tablet 70 mg PO QWEEK 12/31/22 12/31/22 History loratadine 10 mg tablet 10 mg PO QDAY 12/31/22 12/31/22 History metoprolol succinate 50 mg 50 mg PO QDAY 12/31/22 12/31/22 History tablet,extended release 24 hr Allergies Allergy/AdvReac Type Severity Reaction Status Date / Time adhesive tape Allergy Mild Rash Verified 04/10/24 20:41 amoxicillin Allergy Mild rash Verified 04/10/24 20:41 sulfamethoxazole Allergy Mild dry mouth Verified 04/10/24 20:41 trimethoprim Allergy Mild dry mouth Verified 04/10/24 20:41 Contrast Media Allergy Intermediate Rash Uncoded 04/10/24 20:41 Visit Medications Acetaminophen (Acetaminophen 325 Mg Tablet) 650 mg PO Q6H PRN PRN Reason: pain and Fever >100.4 Stop: 06/03/25 04:01 Hydrocodone Bitart/Acetaminophen (Hydrocodone/Apap 5/325 Tablet) 1 tab PO Q4HR PRN PRN Reason: PAIN SCALE 4-10(Mod-Sev Stop: 05/09/25 04:01 Albuterol/Ipratropium (Albuterol/Ipratropium (Duoneb) Rt Emma 3 Ml Nebu) 3 ml INH Q4HRRT [facility] Stop: 06/03/25 06:59 Azithromycin (Azithromycin 250 Mg Tablet) 500 mg PO QDAY [facility] Stop: 05/11/25 08:59 Heparin Sodium (Porcine) (Heparin Sod Inj 5000 Unit/Ml Vial) 5,000 unit SC Q8HR [facility] Stop: 05/18/25 05:59 Ceftriaxone Sodium/Dextrose (Rocephin/D5w 1gm Iv Premix) 1 gm in 50 mls @ 100 mls/hr IV X1 ONE Stop: 05/04/25 00:35 Ondansetron HCl (Ondansetron Inj 2 Mg/Ml Inj 2 Ml) 4 mg IVP Q6H PRN; Protocol PRN Reason: NAUSEA OR VOMITING Stop: 06/03/25 04:01 Oseltamivir Phosphate (Oseltamivir 6 Mg/Ml) 75 mg PO QDAY [facility] Stop: 05/12/25 08:59 Discontinued Medications Albuterol/Ipratropium (Albuterol/Ipratropium (Duoneb) Rt Emma 3 Ml Nebu) 3 ml INH X1 ONE Stop: 05/04/25 00:09 Last Admin: 05/04/25 00:31 Dose: 3 ml Sodium Chloride (Ns) 1,000 mls @ 999 mls/hr IV .Q1H1M ONE Stop: 05/04/25 02:34 Last Infusion: 05/04/25 02:56 Dose: Infused Doxycycline Hyclate 100 mg/ (Sodium Chloride) 100 mls @ 100 mls/hr IV X1 ONE Stop: 05/04/25 02:33 Last Infusion: 05/04/25 02:55 Dose: Infused Methylprednisolone Sodium Succinate (Methylprednisolone Sod Succ 62.5 Mg/Ml 2ml Vial) 125 mg IVP X1 ONE Stop: 05/04/25 01:29 Last Admin: 05/04/25 01:49 Dose: 125 mg Oseltamivir Phosphate (Oseltamivir 75 Mg Capsule) 75 mg PO X1 ONE Stop: 05/04/25 02:47 Last Admin: 05/04/25 03:12 Dose: 75 mg Assessment & Plan Plan 75-year-old female with past medical history of alpha thalassemia, osteoporosis, hyperlipidemia, hypertension, and questionable A-fib was admitted to the hospital on 05/04/2025 for acute hypoxic respiratory failure likely secondary to influenza pneumonia. #Acute hypoxic respiratory failure #Influenza A, pneumonia #Community-acquired pneumonia Patient came with complaints of shortness of breath and productive cough for around 1 week. Influenza A positive Patient was prescribed azithromycin outpatient, but failed these antibiotics. Chest x-ray did show showed left lower lobe possibly retrocardiac No fevers or WBC elevation at this time. 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 Hemoglobin 8.9 today and baseline is around 9. No active signs of bleeding Plan: Will transfuse hemoglobin less than 7 Will continue to monitor Chronic diseases: #Hx of hyperlipidemia #Hx of hypertension #Hx of questionable A-fib Patient's EKG showed sinus rhythm and patient's blood pressure is under control at the time of admission. Will wait for medication reconciliation prior to this restart home medications. Disposition: Patient admitted to [facility] for AHRF 01/02 Influenza PNA Diet: Cardiac GI prophylaxis: not indicated DVT prophylaxis: heparin subcu Code:DNR Case disclosed with Attending Dr. Cristiano Floyd PGY1 Disclaimer: Even though this this note was dictated by speech recognition and even though it was carefully revised there may still be minor errors in tea tree farmer due to voice recognition software. Attending Provider Attestation/Addendum Face to face evaluation was performed by me. I have personally seen and examined the patient. I discussed the assessment and plan with the entire medicine team. I reviewed available medical records, imaging studies, laboratory results. I agree with the above subjective data, objective findings, assessment and plan except as corrected by me or noted below Influenza A qih pna Acute hypoxic rep failure HLDHTN - tamiflu, abxs- allergic to penicillin- azithromycin added, likely will switch to levaquin - Suppl o2 support, wean as able continue other mds as reconciled dvt ppx More than > 30 minutes spent on the encounter
[2025-05-04 04:59] LABS: Basophils % (Auto) 0 % (0-2.5); Eosinophils % (Auto) 0 % (0-10); Hematocrit 26.1 % (36.0-46.0); Immature Granulocytes % (Auto) 0 % (0-0); Immature Granulocytes Auto 0.01 Thou/mm3 (0.00-0.00); Lymphocytes % (Auto) 20 % (10-50); Mean Corpuscular HGB Conc 30.3 g/dl (31.0-37.0); Mean Corpuscular Hemoglobin 18.6 pg (25.0-35.0); Mean Corpuscular Volume 62 fL (80-100); Monocytes # (Auto) 0.1 Thou/mm3 (0.0-0.8); Monocytes % (Auto) 3 % (0-12); Neutrophils # (Auto) 3.6 Thou/mm3 (1.8-7.7); Neutrophils % (Auto) 77 % (37-80); Nucleated Red Blood Cell # 0.02 Thou/mm3 (0.00-0.00); Nucleated Red Blood Cell % 0 /100 WBC (0); Platelet Count 171 Thou/mm3 (140-440); RDW Standard Deviation 45.7 fL (36.4-46.3); Red Blood Count 4.24 Miln/mm3 (4.00-5.20); White Blood Count 4.7 Thou/mm3 (3.6-11.0)
[2025-05-04 05:04] LABS: Hemoglobin 7.9 g/dL (12.0-16.0)
[2025-05-04 05:20] LABS: Alanine Aminotransferase 21 U/L (10-49); Albumin, Serum 3.9 gm/dL (3.4-4.8); Albumin/Globulin Ratio 1.4 (1.2-2.2); Alkaline Phosphatase 46 U/L (46-116); Anion Gap 13 (7-16); Aspartate Amino Transferase 31 U/L (0-34); BUN/Creatinine Ratio 25 Ratio (12-20); Bilirubin,Total 2.3 mg/dL (0.3-1.2); Blood Urea Nitrogen 15 mg/dL (9-23); Calcium 7.9 mg/dL (8.3-10.6); Carbon Dioxide 25.1 mMol/L (20.0-31.0); Chloride 106 mMol/L (98-107); Cholesterol 111 mg/dL (132-200); Creatinine (Component) 0.6 mg/dL (0.6-1.3); Estimated Creatinine Clearance 68.8 mL/min (>60); Globulin 2.7 gm/dL (2.3-3.5); Glucose 170 mg/dL (74-106); HDL Cholesterol 28 mg/dL (40-60); LDL Cholesterol,Calculated 67 mg/dL (0-130); Magnesium 1.7 mg/dL (1.6-2.6); Osmolality,Calculated 291 (275-295); Potassium 3.7 mMol/L (3.4-5.1); Sodium 144 mMol/L (136-145); Total Protein 6.6 gm/dL (5.7-8.2); Triglycerides 80 mg/dL (30-150); eGFR > 60 See Note
[2025-05-04] MEDS: cefTRIAXone/D5w 1gm IV premix 1 GM/50 ML BAG IV (06:26)
[2025-05-04] MEDS: HEPARIN SOD INJ 5000 UNIT/ML VIAL SC ×3 (06:26→21:09)
[2025-05-04] MEDS: AZITHROMYCIN 250 MG TABLET 500 MG PO (08:32)
[2025-05-04] MEDS: POTASSIUM CHLORIDE 20 mEq TABCR 40 MEQ PO (08:32)
[2025-05-04 12:08] LABS: Cocci Serology, IgM Negative (Negative)
--- NOTE | 2025-05-04 13:03 | ESPR_ITS ---
<Statement entered by Jose Menon MD - 05/05/25 07:14> I discussed with and supervised the internet sales director physician involved in the care of this patient. Patient assessment and plan was discussed with entire medicine team, including my attending. I agree with the assessment and plan as documented by internet sales director doctor. Patient care was discussed with my attending physician Dr. Malka Menon, PGY-2 Documentation for date of: 05/04/25 Subjective Subjective Interval history: Patient was seen and examined by the bedside. No acute overnight events. Patient reports cough, wheezing. Saturates well on 2L NC. Pending cocci serology. Discontinued azithromycin. Continuing tamiflu. Anticipate DC in 24 hours. Exam Vital Signs Temp Pulse Resp BP Pulse Ox O2 Del Method O2 Flow Rate 97.2 F 104 H 18 156/91 H 92 L Nasal Cannula 4 05/04/25 12:00 05/04/25 12:00 05/04/25 12:00 05/04/25 12:00 05/04/25 12:00 05/04/25 12:05/04/25 12:00 Narrative Exam Gen: Well-developed and well-nourished. HEENT: NCAT, PERRLA, EOMI, MMM, anicteric conjunctivae. CVS: normal S1 and S2. RRR. No M/R/G. Resp: Bilateral rhonchi in the upper chest. Abd: soft, non-tender, non-distended. BS+ in all 4 quadrants. MSK: Good ROM in BUE & BLE. No edema or rash. Neuro: CN II-XII grossly intact. Strength 5/5 in BUE & BLE. Alert and oriented x3. Psych: appropriate mood and affect. Objective Labs 05/04/25 04:20 05/04/25 04:20 Labs: Laboratory Results - last 24 hr 05/04/25 05/04/25 05/04/25 00:38 01:49 01:52 WBC 5.7 RBC 4.78 Hgb 8.9 L Hct 29.5 L MCV 62 L MCH 18.6 L MCHC 30.2 L RDW Std Deviation 45.7 Plt Count 191 Neut % (Auto) 45 Lymph % (Auto) 42 [place] % (Auto) 12 Eos % (Auto) 1 Baso % (Auto) 0 Neut # (Auto) 2.6 Lymph # (Auto) 2.4 [place] # (Auto) 0.7 Eos # (Auto) 0.1 Baso # (Auto) 0.0 Immature Gran # (Auto) 0.02 H Absolute Nucleated RBC 0.00 Immature Gran % 0 Nucleated RBC % 0 PT 11.1 INR 1.0 APTT 30.8 Sodium 143 Potassium 3.8 Chloride 104 Carbon Dioxide 26.3 Anion Gap 13 BUN 20 Creatinine 0.8 Estim Creat Clear Calc 51.6 L eGFR > 60 BUN/Creatinine Ratio 25 H Glucose 152 H Calculated Osmolality 290 Lactic Acid 1.1 Calcium 8.7 Corrected Calcium 8.7 Magnesium Total Bilirubin 2.5 H AST 37 H ALT 24 Alkaline Phosphatase 51 Troponin I < 0.020 B-Natriuretic Peptide 26 Total Protein 7.3 Albumin 4.4 Globulin 2.9 Albumin/Globulin Ratio 1.5 Triglycerides Cholesterol LDL Cholesterol, Calc HDL Cholesterol Cholesterol/HDL Ratio Procalcitonin 0.13 Ur Collection Type Clean Catch Urine Color Yellow Urine Clarity Clear Urine pH 6.0 Ur Specific [place] 1.023 Urine Protein 1+ A Urine Glucose (UA) Negative Urine Ketones Trace Urine Blood 2+ A Urine Nitrite Negative Urine Bilirubin Negative Urine Urobilinogen (Auto) Negative Ur Leukocyte Esterase Negative Urine RBC 6 H Urine WBC 2 Ur Squamous Epith Cells 2 Urine Bacteria None Coccidioides IgM Ab 05/04/25 05/04/25 04:20 09:45 WBC 4.7 RBC 4.24 Hgb 7.9 L Hct 26.1 L MCV 62 L MCH 18.6 L MCHC 30.3 L RDW Std Deviation 45.7 Plt Count 171 Neut % (Auto) 77 Lymph % (Auto) 20 [place] % (Auto) 3 Eos % (Auto) 0 Baso % (Auto) 0 Neut # (Auto) 3.6 Lymph # (Auto) 1.0 [place] # (Auto) 0.1 Eos # (Auto) 0.0 Baso # (Auto) 0.0 Immature Gran # (Auto) 0.01 H Absolute Nucleated RBC 0.02 H Immature Gran % 0 Nucleated RBC % 0 PT INR APTT Sodium 144 Potassium 3.7 Chloride 106 Carbon Dioxide 25.1 Anion Gap 13 BUN 15 Creatinine 0.6 Estim Creat Clear Calc 68.8 eGFR > 60 BUN/Creatinine Ratio 25 H Glucose 170 H Calculated Osmolality 291 Lactic Acid Calcium 7.9 L Corrected Calcium 8.0 L Magnesium 1.7 Total Bilirubin 2.3 H AST 31 ALT 21 Alkaline Phosphatase 46 Troponin I B-Natriuretic Peptide Total Protein 6.6 Albumin 3.9 D Globulin 2.7 Albumin/Globulin Ratio 1.4 Triglycerides 80 Cholesterol 111 L LDL Cholesterol, Calc 67 HDL Cholesterol 28 L Cholesterol/HDL Ratio 4.0 Procalcitonin Ur Collection Type Urine Color Urine Clarity Urine pH Ur Specific [place] Urine Protein Urine Glucose (UA) Urine Ketones Urine Blood Urine Nitrite Urine Bilirubin Urine Urobilinogen (Auto) Ur Leukocyte Esterase Urine RBC Urine WBC Ur Squamous Epith Cells Urine Bacteria Coccidioides IgM Ab Negative Quality Measures Quality Measures VTE prophylaxis Advance care planning discussed with:: other Assessment & Plan Assessment Current Active Medications: Generic Name Dose Route Start Last Admin Trade Name Freq PRN Reason Stop Dose Admin Acetaminophen 650 mg 05/04/25 04:02 Acetaminophen 325 Mg Tablet PO 06/03/25 04:01 Q6H PRN pain and Fever >100.4 Hydrocodone Bitart/Acetaminophen 1 tab 05/04/25 04:02 Hydrocodone/Apap 5/325 Tablet PO 05/09/25 04:01 Q4HR PRN PAIN SCALE 4-10(Mod-Sev Albuterol/Ipratropium 3 ml 05/04/25 07:00 05/04/25 10:45 Albuterol/Ipratropium (Duoneb) Rt Emma 3 Ml Nebu INH 06/03/25 06:59 3 ml Q4HRRT [facility] Administration Azithromycin 500 mg 05/04/25 09:00 05/04/25 08:32 Azithromycin 250 Mg Tablet PO 05/11/25 08:59 500 mg QDAY [facility] Administration Guaifenesin 100 mg 05/04/25 14:00 Guaifenesin Syrup 200 Mg/10 Ml Udc PO 06/03/25 13:59 TID [facility] Protocol Heparin Sodium (Porcine) 5,000 unit 05/04/25 06:00 05/04/25 06:26 Heparin Sod Inj 5000 Unit/Ml Vial SC 05/18/25 05:59 5,000 unit Q8HR [facility] Administration Ondansetron HCl 4 mg 05/04/25 04:02 Ondansetron Inj 2 Mg/Ml Inj 2 Ml IVP 06/03/25 04:01 Q6H PRN NAUSEA OR VOMITING Protocol Oseltamivir Phosphate 75 mg 05/05/25 09:00 Oseltamivir 6 Mg/Ml PO 05/12/25 08:59 QDAY [facility] Plan The patient is a 75-year-old female with past medical history of alpha thalassemia, osteoporosis, hyperlipidemia, hypertension, and questionable A-fib was admitted to the hospital on 05/04/2025 for acute hypoxic respiratory failure likely secondary to influenza pneumonia. #Influenza A, pneumonia #Community-acquired pneumonia Patient came with complaints of shortness of breath and productive cough for around 1 week. Influenza A positive Patient was prescribed azithromycin outpatient, but failed these antibiotics. Chest x-ray did show showed left lower lobe possibly retrocardiac No fevers or WBC elevation at this time. 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 Hemoglobin 8.9 today and baseline is around 9. No active signs of bleeding Plan: -transfuse hemoglobin less than 7 -Will continue to monitor - continue to follow-up outpatient #Hx of hyperlipidemia #Hx of hypertension #Hx of questionable A-fib Patient's EKG showed sinus rhythm. Plan: - resumed home losartan - resumed home metoprolol Disposition: medtele Diet: Cardiac GI prophylaxis: not indicated DVT prophylaxis: heparin subcu Code:DNR Plan of care discussed with attending Dr. cAe, PGY-[address] Menon. Marlee Guerrero MD, PGY 1. Attending Provider Attestation/Addendum I have discussed and was present for the essential components of the history, physical examination, diagnosis, and treatment plan with the resident. I agree with the patient's care as documented by the resident and amended herein by me. Papo Ace, DO. Patient seen and evaluated this AM. No acute events overnight, vital signs stable, patient afebrile. Patient presently on 1 L via nasal cannula, SpO2 92% time of bedside visit. Significant labs include a stable hemoglobin 7.9, calcium a bit low at 8 and T. bili stable at 2.3. Cocci serologies pending. Will continue Tamiflu however will DC antibiotics at this time as the patient's procalcitonin was negative, likely pneumonia secondary to influenza A which she tested positive for. Continue to monitor closely, likely discharge in 1 to 2 days pending clinical improvement. Although this document has been carefully reviewed, there may still be some phonetic and other typographical errors. These errors are purely grammatical due to imperfections in the software program and should not be construed in any way to compromise the substance of the patient's medical care during this visit.
[2025-05-04] MEDS: guaiFENesin SYRUP 200 MG/10 ML UDC 100 MG PO ×2 (14:15→21:08)
[2025-05-04] MEDS: METOPROLOL SUCCINATE XL 25 MG TABCR PO (15:19)
[2025-05-04] MEDS: LOSARTAN POTASSIUM 25 MG TABLET PO (15:23)
[2025-05-05] VITALS (17 sets, daily range): BP systolic 116–140; BP diastolic 58–81; PULSE 66–87; RESP 16–20; TEMP 36.1–36.2; O2SAT 93–99
[2025-05-05] MEDS: ALBUTEROL/IPRATROPIUM (Duoneb) RT SOL 3 ML NEBU INH ×4 (02:35→18:44)
[2025-05-05] MEDS: guaiFENesin SYRUP 200 MG/10 ML UDC 100 MG PO ×3 (05:48→20:46)
[2025-05-05] MEDS: HEPARIN SOD INJ 5000 UNIT/ML VIAL SC ×3 (05:49→20:51)
[2025-05-05 06:00] LABS: Alanine Aminotransferase 18 U/L (10-49); Albumin, Serum 3.8 gm/dL (3.4-4.8); Albumin/Globulin Ratio 1.5 (1.2-2.2); Alkaline Phosphatase 40 U/L (46-116); Anion Gap 11 (7-16); Aspartate Amino Transferase 32 U/L (0-34); BUN/Creatinine Ratio 35 Ratio (12-20); Bilirubin,Total 1.7 mg/dL (0.3-1.2); Blood Urea Nitrogen 21 mg/dL (9-23); Calcium 8.5 mg/dL (8.3-10.6); Calcium (Corrected) 8.7 mg/dL (8.5-10.1); Chloride 107 mMol/L (98-107); Creatinine (Component) 0.6 mg/dL (0.6-1.3); Estimated Creatinine Clearance 67.6 mL/min (>60); Globulin 2.5 gm/dL (2.3-3.5); Glucose 117 mg/dL (74-106); Magnesium 1.9 mg/dL (1.6-2.6); Osmolality,Calculated 292 (275-295); Potassium 4.3 mMol/L (3.4-5.1); Sodium 145 mMol/L (136-145); Total Protein 6.3 gm/dL (5.7-8.2); eGFR > 60 See Note
[2025-05-05 06:08] LABS: Basophils % (Auto) 0 % (0-2.5); Eosinophils % (Auto) 0 % (0-10); Hematocrit 25.1 % (36.0-46.0); Immature Granulocytes % (Auto) 5 % (0-0); Immature Granulocytes Auto 0.38 Thou/mm3 (0.00-0.00); Lymphocytes # (Auto) 3.3 Thou/mm3 (1.0-4.8); Lymphocytes % (Auto) 39 % (10-50); Mean Corpuscular HGB Conc 30.3 g/dl (31.0-37.0); Mean Corpuscular Hemoglobin 18.4 pg (25.0-35.0); Mean Corpuscular Volume 61 fL (80-100); Monocytes # (Auto) 0.8 Thou/mm3 (0.0-0.8); Monocytes % (Auto) 10 % (0-12); Neutrophils # (Auto) 3.9 Thou/mm3 (1.8-7.7); Neutrophils % (Auto) 46 % (37-80); Nucleated Red Blood Cell # 0.03 Thou/mm3 (0.00-0.00); Nucleated Red Blood Cell % 0 /100 WBC (0); Platelet Count 214 Thou/mm3 (140-440); RDW Standard Deviation 46.3 fL (36.4-46.3); Red Blood Count 4.12 Miln/mm3 (4.00-5.20); White Blood Count 8.4 Thou/mm3 (3.6-11.0)
[2025-05-05 06:11] LABS: Hemoglobin 7.6 g/dL (12.0-16.0)
[2025-05-05] MEDS: LOSARTAN POTASSIUM 25 MG TABLET PO (08:34)
[2025-05-05] MEDS: METOPROLOL SUCCINATE XL 25 MG TABCR PO (08:35)
[2025-05-05] MEDS: OSELTAMIVIR 75 MG CAPSULE PO ×2 (08:38→20:47)
[2025-05-05 09:45] LABS: LDH (Lactate Dehydrogenase) 298 U/L (120-246)
--- NOTE | 2025-05-05 09:47 | PC.NURSE ---
Ambulated patient on room air. Patient 02 sats went down to 86%. Ambulated to back to room 02 sats 96% on 1liter nasal cannula. --Ja
[2025-05-05 11:08] LABS: Misc Send Out* See Sep Rpt
[2025-05-05 11:17] LABS: Cocci Serology, IgG Negative (Negative)
--- NOTE | 2025-05-05 11:43 | ESPR_ITS ---
<Statement entered by Jose Menon MD - 05/05/25 21:53> I discussed with and supervised the internet systems administrator physician involved in the care of this patient. Patient assessment and plan was discussed with entire medicine team, including my attending. I agree with the assessment and plan as documented by internet systems administrator doctor. Patient care was discussed with my attending physician Dr.Tingle Jose Menon, PGY-2 Documentation for date of: 05/05/25 Subjective Subjective Interval history: Patient seen and examined at the bedside. Reports improvement in her shortness of breath and cough. Cocci serology negative. Pending sputum and blood cultures. Saturates well on 1 L of nasal cannula. During ambulation O2 saturation went down to 86%. Morning hemoglobin level was 7.6, patient denies bloody, dark stools. FOBT was negative. LDH level is elevated to 298, total bilirubin downtrended 1.7, could be provoked by the Influenza infection. Patient's fasting glucose tends to be elevated, hemoglobin A1c would not be reliable in the setting of thalassemia. Patient would benefit from fructosamine assay outpatient. Anticipate discharge in 24 hours. Patient is a Jehovah Witness and declined blood transfusion. Exam Vital Signs Temp Pulse Resp BP Pulse Ox O2 Del Method O2 Flow Rate 97.1 F 72 18 120/60 99 Nasal Cannula 1 05/05/25 07:56 05/05/25 11:23 05/05/25 11:23 05/05/25 08:35 05/05/25 11:23 05/05/25 07:56 05/05/25 11:23 Narrative Exam Gen: Well-developed and well-nourished. HEENT: NCAT, PERRLA, EOMI, MMM, anicteric conjunctivae. CVS: normal S1 and S2. RRR. No M/R/G. Resp: CTABL. Abd: soft, non-tender, non-distended. BS+ in all 4 quadrants. MSK: Good ROM in BUE & BLE. No edema or rash. Neuro: CN II-XII grossly intact. Strength 5/5 in BUE & BLE. Alert and oriented x3. Psych: appropriate mood and affect. Objective Labs 05/05/25 05:09 05/05/25 05:09 Labs: Laboratory Results - last 24 hr 05/04/25 05/05/25 09:45 05:09 WBC 8.4 D RBC 4.12 Hgb 7.6 L Hct 25.1 L MCV 61 L MCH 18.4 L MCHC 30.3 L RDW Std Deviation 46.3 Plt Count 214 D Neut % (Auto) 46 Lymph % (Auto) 39 [place] % (Auto) 10 Eos % (Auto) 0 Baso % (Auto) 0 Neut # (Auto) 3.9 Lymph # (Auto) 3.3 [place] # (Auto) 0.8 Eos # (Auto) 0.0 Baso # (Auto) 0.0 Immature Gran # (Auto) 0.38 H Absolute Nucleated RBC 0.03 H Immature Gran % 5 H Nucleated RBC % 0 Sodium 145 Potassium 4.3 D Chloride 107 Carbon Dioxide 27.0 Anion Gap 11 BUN 21 Creatinine 0.6 Estim Creat Clear Calc 67.6 eGFR > 60 BUN/Creatinine Ratio 35 H Glucose [address] Glu mg/dL Cancelled Hemoglobin A1c Cancelled Calculated Osmolality 292 Calcium 8.5 Corrected Calcium 8.7 Magnesium 1.9 Total Bilirubin 1.7 H D AST 32 ALT 18 Alkaline Phosphatase 40 L Lactate Dehydrogenase 298 H Total Protein 6.3 Albumin 3.8 Globulin 2.5 Albumin/Globulin Ratio 1.5 Coccidioides IgG Ab Negative Coccidioides IgM Ab Negative Quality Measures Quality Measures VTE prophylaxis Advance care planning discussed with:: other Assessment & Plan Assessment Current Active Medications: Generic Name Dose Route Start Last Admin Trade Name Freq PRN Reason Stop Dose Admin Acetaminophen 650 mg 05/04/25 04:02 Acetaminophen 325 Mg Tablet PO 06/03/25 04:01 Q6H PRN pain and Fever >100.4 Protocol Hydrocodone Bitart/Acetaminophen 1 tab 05/04/25 04:02 Hydrocodone/Apap 5/325 Tablet PO 05/09/25 04:01 Q4HR PRN PAIN SCALE 4-10(Mod-Sev Albuterol/Ipratropium 3 ml 05/04/25 07:00 05/05/25 11:23 Albuterol/Ipratropium (Duoneb) Rt Emma 3 Ml Nebu INH 06/03/25 06:59 3 ml Q4HRRT CASSI Administration Guaifenesin 100 mg 05/04/25 14:00 05/05/25 05:48 Guaifenesin Syrup 200 Mg/10 Ml Udc PO 06/03/25 13:59 100 mg TID CASSI Administration Protocol Heparin Sodium (Porcine) 5,000 unit 05/04/25 06:00 05/05/25 05:49 Heparin Sod Inj 5000 Unit/Ml Vial SC 05/18/25 05:59 5,000 unit Q8HR CASSI Administration Losartan Potassium 25 mg 05/05/25 09:00 05/05/25 08:34 Losartan Potassium 25 Mg Tablet PO 06/04/25 08:59 25 mg QDAY CASSI Administration Metoprolol Succinate 25 mg 05/04/25 15:15 05/05/25 08:35 Metoprolol Succinate Xl 25 Mg Tabcr PO 06/03/25 15:14 25 mg QDAY CASSI Administration Ondansetron HCl 4 mg 05/04/25 04:02 Ondansetron Inj 2 Mg/Ml Inj 2 Ml IVP 06/03/25 04:01 Q6H PRN NAUSEA OR VOMITING Protocol Oseltamivir Phosphate 75 mg 05/04/25 21:00 05/05/25 08:38 Oseltamivir 75 Mg Capsule PO 05/11/25 20:59 75 mg BID CASSI Administration Plan The patient is a 75-year-old female with past medical history of alpha thalassemia, osteoporosis, hyperlipidemia, hypertension, and questionable A-fib was admitted to the hospital on 05/04/2025 for acute hypoxic respiratory failure likely secondary to influenza pneumonia. #Influenza A, pneumonia #Community-acquired pneumonia Patient came with complaints of shortness of breath and productive cough for around 1 week. Influenza A positive Patient was prescribed azithromycin outpatient, but failed these antibiotics. Chest x-ray did show showed left lower lobe possibly retrocardiac No fevers or WBC elevation at this time. 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 Hemoglobin 8.9 today and baseline is around 9. No active signs of bleeding Patient is a Jehovah Witness and declined blood transfusion. Plan: -patient declined blood transfusion in case her Hemoglobin drops more. -Will continue to monitor - continue to follow-up outpatient #Elevated fasting glucose Plan: - follow-up outpatient - consider fructosamine assay due unreliability of HbA1c #Hx of hyperlipidemia #Hx of hypertension #Hx of questionable A-fib Patient's EKG showed sinus rhythm. Plan: - resumed home losartan - resumed home metoprolol Disposition: medtele Diet: Cardiac GI prophylaxis: not indicated DVT prophylaxis: heparin subcu Code:DNR Plan of care discussed with attending Dr. Ace, PGY-[address] Menon. Marlee Guerrero MD, PGY 1. Attending Provider Attestation/Addendum I have discussed and was present for the essential components of the history, physical examination, diagnosis, and treatment plan with the resident. I agree with the patient's care as documented by the resident and amended herein by me. Papo Ace, DO. Patient seen and evaluated this AM. No acute events overnight, vital signs stable, patient afebrile, patient on 1 L NC, SpO2 99%. Significant labs include a WBC of 8 which was a jump up from 4. T. bili has down trended to 1.7, BMP largely unremarkable. Considering the patient's hemoglobin was low on this admission but stable at 7.6 today, I did order a fecal occult testing which was negative. Patient does however have a history of alpha thalassemia. Will continue Tamiflu for now for influenza pneumonia, broad-spectrum antibiotics discontinued yesterday as I have low concern for superimposed bacterial component, likely discharge on 05/06 if the patient continues to clinically improve. Although this document has been carefully reviewed, there may still be some phonetic and other typographical errors. These errors are purely grammatical due to imperfections in the software program and should not be construed in any way to compromise the substance of the patient's medical care during this visit.
--- NOTE | 2025-05-05 11:55 | PC.NURSE ---
ambulated with patient at this time on room air. Patient continues to sat 87% on room air while walking and resting. Patient back on 1l nc where she sats 95% on 1 liter. --Randy
[2025-05-05 13:27] LABS: OBS Card Lot # 23001; OBS Developer Lot # 23003; OBS Performed By ALVAJ; OBS QC OK? Yes; Occult Blood, Stool Negative (Negative)
[2025-05-06] VITALS (10 sets, daily range): BP systolic 101–147; BP diastolic 67–87; PULSE 73–99; RESP 14–19; TEMP 36.1–36.4; O2SAT 93–100
[2025-05-06] MEDS: ALBUTEROL/IPRATROPIUM (Duoneb) RT SOL 3 ML NEBU INH ×3 (00:11→13:14)
[2025-05-06 05:54] LABS: Basophils % (Auto) 0 % (0-2.5); Eosinophils # (Auto) 0.1 Thou/mm3 (0.0-0.5); Eosinophils % (Auto) 1 % (0-10); Hematocrit 26.9 % (36.0-46.0); Immature Granulocytes % (Auto) 1 % (0-0); Immature Granulocytes Auto 0.06 Thou/mm3 (0.00-0.00); Lymphocytes # (Auto) 3.7 Thou/mm3 (1.0-4.8); Lymphocytes % (Auto) 40 % (10-50); Mean Corpuscular HGB Conc 29.7 g/dl (31.0-37.0); Mean Corpuscular Hemoglobin 18.7 pg (25.0-35.0); Mean Corpuscular Volume 63 fL (80-100); Monocytes # (Auto) 0.6 Thou/mm3 (0.0-0.8); Monocytes % (Auto) 7 % (0-12); Neutrophils # (Auto) 4.9 Thou/mm3 (1.8-7.7); Neutrophils % (Auto) 52 % (37-80); Nucleated Red Blood Cell # 0.03 Thou/mm3 (0.00-0.00); Nucleated Red Blood Cell % 0 /100 WBC (0); Platelet Count 259 Thou/mm3 (140-440); RDW Standard Deviation 46.9 fL (36.4-46.3); Red Blood Count 4.28 Miln/mm3 (4.00-5.20); White Blood Count 9.4 Thou/mm3 (3.6-11.0)
[2025-05-06] MEDS: guaiFENesin SYRUP 200 MG/10 ML UDC 100 MG PO ×2 (06:08→13:39)
[2025-05-06] MEDS: HEPARIN SOD INJ 5000 UNIT/ML VIAL SC (06:09)
[2025-05-06 06:14] LABS: Alanine Aminotransferase 19 U/L (10-49); Albumin/Globulin Ratio 1.5 (1.2-2.2); Alkaline Phosphatase 44 U/L (46-116); Anion Gap 12 (7-16); Aspartate Amino Transferase 28 U/L (0-34); BUN/Creatinine Ratio 28 Ratio (12-20); Blood Urea Nitrogen 17 mg/dL (9-23); Calcium 9.2 mg/dL (8.3-10.6); Calcium (Corrected) 9.2 mg/dL (8.5-10.1); Carbon Dioxide 27.3 mMol/L (20.0-31.0); Chloride 100 mMol/L (98-107); Creatinine (Component) 0.6 mg/dL (0.6-1.3); Estimated Creatinine Clearance 67.6 mL/min (>60); Globulin 2.7 gm/dL (2.3-3.5); Glucose 122 mg/dL (74-106); Magnesium 1.8 mg/dL (1.6-2.6); Osmolality,Calculated 280 (275-295); Potassium 3.5 mMol/L (3.4-5.1); Sodium 139 mMol/L (136-145); Total Protein 6.7 gm/dL (5.7-8.2); eGFR > 60 See Note
[2025-05-06 06:25] LABS: Path Review Blood Smear Sent to Pathologist
[2025-05-06] MEDS: OSELTAMIVIR 75 MG CAPSULE PO (09:32)
[2025-05-06] MEDS: LOSARTAN POTASSIUM 25 MG TABLET PO (09:33)
[2025-05-06] MEDS: METOPROLOL SUCCINATE XL 25 MG TABCR PO (09:33)
--- NOTE | 2025-05-06 11:11 | PC.SS ---
Addendum entered by Avelina Schreiber 05/06/25 13:29: [facility] accepted oxygen and staff will deliver at bedside by 1415. DELLA Mathews informed of ETA for oxygen delivery. Transportation scheduled for [address] [facility] ([phone]), home address: [address] [facility] [id number]. DELLA Mathews informed [facility] to ensure transportation is completed on time. Addendum entered by Avelina Schreiber 05/06/25 12:57: DME referral for oxygen submitted via About. Pending responses from DME companies. SS informed by ALEENA Mason patient is ready for discharge and needing home oxygen. Original Note: SS met with patient at bedside to complete initial assessment. Patient confirmed her demographic information. Patient stated she lives with her nephew. She stated her primary medical surrogate decisionmaker is her friend, Otilia Lawson [phone]. Patient stated she is independent with both ADLs and ambulation. Patient reported not using home oxygen. Preferred pharmacy: [facility]. PCP: Alexandr Daniel, last appt. 03/2025 Next of kin: Friend, Otilia Lawson [phone] Discharge plan: Home, transportation support needed.
--- NOTE | 2025-05-06 13:46 | PC.NURSE ---
Walking 02 room air 87% Resting 02 room air 89% Resting 02 2L 96%
--- NOTE | 2025-05-06 14:41 | ESDS_ITS ---
<Statement entered by Shavonne Chopra DO - 05/07/25 13:58> I, Shavonne Chopra DO, attest that I was physically present for the arias portions of the service and evaluated the patient with the resident and I reviewed and discussed the case with the resident and agree with the resident's findings and plans of care as documented above <Statement entered by Jose Menon MD - 05/07/25 13:31> I discussed with and supervised the commercial internship physician involved in the care of this patient. Patient assessment and plan was discussed with entire medicine team, including my attending. I agree with the assessment and plan as documented by commercial internship doctor. Patient care was discussed with my attending physician Dr. Keysha Menon, PGY-2 Planned Discharge Date 05/06/25 DS: Providers Provider Date of admission: 05/04/25 04:02 Primary care physician: Alexandr Daniel MD Admitting Provider: Nael Quinonez MD Attending Provider on Admission: Shavonne Chopra DO Attending Provider on DC: Meng Lizarraga MD Discharging Provider: Meng Lizarraga MD DS: Diagnosis Problem List Completed Was Problem List Reviewed/Reconciled?: Yes Hospital Course Hospital Course Hospital course: 75-year-old female with past medical history of alpha thalassemia, osteoporosis, hyperlipidemia, hypertension, and questionable A-fib was admitted to the hospital on 05/04/2025 after coming to the ED with complaints of shortness of breath and productive cough and admitted for Acute hypoxic respiratory failure secondary to influenza A pneumonia Hospital course: Initially came in hypertensive, hypoxic, and afebrile. Initial labs were relevant for anemia and positive for influenza A. Initial imaging included chest x-ray which appears to have opacity in the lingula segment and anterior segment left upper lobe consistent with pneumonia. Initial EKG showed sinus rhythm. Tested negative for COVID and cocci. During the hospitalisation, hemoglobin level was 7.6, patient denies bloody, dark stools. FOBT was negative. LDH level is elevated to 298, total bilirubin downtrended 1.7, could be provoked by the Influenza infection. As patient is Jehovas witness, no blood transfusions done during the hospitalisation. Patient is treated with tamiflu. Patient is discharged to home with oxygen Patient is discharged to home with oxygen with the following medications and recommendations - Follow-up with Primary Care Provider within 1 week of discharge. If you do not have appointment, please follow-up with [facility] with Dr. Lizarraga. Call [phone] to make an appointment. - Recommended to continue oseltamavir 75 Mg p.o. twice daily till 05/09/2025 morning dose - Recommend to continue rest of the home medications - Recommended to continue home oxygen and to check saturations with pulse oximeter at home, maintain saturations greater than 90 - Recommended to take rest for 2 weeks - Return to Emergency Department if symptoms persist or return #Influenza A, pneumonia #Community-acquired pneumonia #Hx of alpha thalassemia #Microcytic hypochromic anemia #Elevated fasting glucose #Hx of hyperlipidemia #Hx of hypertension #Hx of questionable A-fib Patient plan of care was discussed with the attending physician, Dr. Chopra and senior resident Dr. Sinan Lizarraga, PGY1 Time Spent with Patient Time attestation: Total time spent providing and/or coordinating discharge services: Time spent: Greater than 30 minutes Exam Vital Signs Temp Pulse Resp BP Pulse Ox O2 Del Method O2 Flow Rate 97.6 F 84 18 119/87 H 100 Nasal Cannula 1 05/06/25 12:00 05/06/25 13:14 05/06/25 13:14 05/06/25 12:00 05/06/25 13:14 05/06/25 12:00 05/06/25 13:14 Narrative Exam General: Awake. HEENT: Normocephalic, atraumatic, mucous membranes moist. Heart: Regular rate and rhythm, no murmurs. Lungs: Clear to auscultation with no wheezing or crackles. Abdomen: Soft, nondistended, nontender, positive bowel sounds. ?No guarding or rebound tenderness. Neurologic: Alert and oriented x3, no gross neurological deficit, and patient able to move all 4 extremities. Extremities: No edema. Skin: No rash or ecchymoses. Discharge Plan Plan Patient Disposition: HOME (Self Care) Patient condition on transfer: Stable Care Plan Goals: - Follow-up with Primary Care Provider within 1 week of discharge. If you do not have appointment, please follow-up with [facility] with Dr. Lizarraga. Call [phone] to make an appointment. - Recommended to continue oseltamavir 75 Mg p.o. twice daily till 05/09/2025 morning dose - Recommend to continue rest of the home medications - Recommended to continue home oxygen and to check saturations with pulse oximeter at home, maintain saturations greater than 90 - Recommended to take rest for 2 weeks - Return to Emergency Department if symptoms persist or return Prescriptions/Referrals Prescriptions/Med Rec: New oseltamivir 75 mg Capsule 75 mg PO BID Qty: 6 0RF Continued metoprolol succinate 50 mg tablet extended release 24 hr 25 mg PO QDAY Patient Comments: TAKE 1 TABLET BY MOUTH EVERY DAY losartan 25 mg tablet 25 mg PO DAILY Patient Comments: TAKE 1 TABLET BY MOUTH EVERY DAY FOR 90 DAYS Referrals: Alexandr Daniel MD [Primary Care Provider] - Patient/Caregiver Discharge Instructions Education Materials: What Is Pneumonia?, When You Have Pneumonia, ED Shortness of Breath (Dyspnea) Print Language: Latvian Stand Alone Forms: Kari Award Info., Patient Portal Info Letter Discharge Order Discharge Orders: Discharge (Routine); Ordered 05/06/25 Ordered By: Meng Lizarraga Quality Discharge Quality Measures VTE prophylaxis
== END 2025-05-06 15:25 | disposition home or self-care (01) | DRG 193 ==
LOC: SERX 05-04 03:01 → SERHOLD 05-04 04:46 → S3NX 05-04 05:47
PROVIDERS: Physician Assistant; Student in an Organized Health Care Education/Training Program; Admitting Provider Internal Medicine; Emergency Provider Emergency Medicine; PCP Family Medicine; Visit Provider Internal Medicine
DX: J10.00 Influenza due to other identified influenza virus with unspecified type of pneumonia (principal); J96.01 Acute respiratory failure with hypoxia; I48.91 Unspecified atrial fibrillation; E78.5 Hyperlipidemia, unspecified; M81.0 Age-related osteoporosis without current pathological fracture; I10 Essential (primary) hypertension; D56.0 Alpha thalassemia; D50.9 Iron deficiency anemia, unspecified; I25.10 Atherosclerotic heart disease of native coronary artery without angina pectoris; Z88.0 Allergy status to penicillin; Z66 Do not resuscitate; Z79.83 Long term (current) use of bisphosphonates; Z87.442 Personal history of urinary calculi; Z90.49 Acquired absence of other specified parts of digestive tract; Z88.2 Allergy status to sulfonamides; Z88.8 Allergy status to other drugs, medicaments and biological substances
CPT/HCPCS: 36415; 71045; 80053; 80061; 81001; 82270; 83036; 83605; 83615; 83735; 83880; 84145; 84484; 85025; 85610; 85730; 86331; 86635; 87040; 87086; 87205; 87400; 87811; 93005; 93225; 94640; 94762; 96365; 96375; 99291; A9270; J0696; J1644; J2919; J3490; J7030

== ENCOUNTER → 2025-05-23 | Outpatient (CLI) | payer MEDICARE, MEDICAID, SELFPAY ==
[2025-05-23 08:43] LABS: Basophils % (Auto) 1 % (0-2.5); Eosinophils # (Auto) 0.2 Thou/mm3 (0.0-0.5); Eosinophils % (Auto) 3 % (0-10); Hematocrit 31.7 % (36.0-46.0); Hemoglobin 8.8 g/dL (12.0-16.0); Immature Granulocytes % (Auto) 0 % (0-0); Immature Granulocytes Auto 0.02 Thou/mm3 (0.00-0.00); Lymphocytes # (Auto) 1.8 Thou/mm3 (1.0-4.8); Lymphocytes % (Auto) 32 % (10-50); Mean Corpuscular HGB Conc 27.8 g/dl (31.0-37.0); Mean Corpuscular Hemoglobin 19.1 pg (25.0-35.0); Mean Corpuscular Volume 69 fL (80-100); Monocytes # (Auto) 0.5 Thou/mm3 (0.0-0.8); Monocytes % (Auto) 8 % (0-12); Neutrophils # (Auto) 3.3 Thou/mm3 (1.8-7.7); Neutrophils % (Auto) 57 % (37-80); Nucleated Red Blood Cell # 0.02 Thou/mm3 (0.00-0.00); Nucleated Red Blood Cell % 0 /100 WBC (0); Platelet Count 312 Thou/mm3 (140-440); RDW Standard Deviation 66.2 fL (36.4-46.3); Red Blood Count 4.61 Miln/mm3 (4.00-5.20); Reticulocyte Absolute Auto 275.7 Biln/L (25.0-75.0); Reticulocyte Hgb Content 21.1 pg (28.0-35.0); White Blood Count 5.8 Thou/mm3 (3.6-11.0)
[2025-05-23 09:06] LABS: Alanine Aminotransferase 14 U/L (10-49); Albumin, Serum 4.2 gm/dL (3.4-4.8); Albumin/Globulin Ratio 1.4 (1.2-2.2); Alkaline Phosphatase 56 U/L (46-116); Anion Gap 8 (7-16); Aspartate Amino Transferase 18 U/L (0-34); BUN/Creatinine Ratio 20 Ratio (12-20); Bilirubin,Total 2.6 mg/dL (0.3-1.2); Blood Urea Nitrogen 12 mg/dL (9-23); Calcium 9.1 mg/dL (8.3-10.6); Calcium (Corrected) 9.1 mg/dL (8.5-10.1); Carbon Dioxide 28.9 mMol/L (20.0-31.0); Chloride 104 mMol/L (98-107); Creatinine (Component) 0.6 mg/dL (0.6-1.3); Folate 16.47 ng/mL (>5.38); Globulin 3.1 gm/dL (2.3-3.5); Glucose 118 mg/dL (74-106); Osmolality,Calculated 281 (275-295); Potassium 3.9 mMol/L (3.4-5.1); Sodium 141 mMol/L (136-145); Total Protein 7.3 gm/dL (5.7-8.2); Vitamin B12 901 pg/mL (211-911); eGFR > 60 See Note
[2025-05-23 09:09] LABS: Ferritin 513 ng/mL (7.3-270.7); Iron 92 mcg/dL (50-170); Percent Iron Saturation 32 % (20-55); Total Iron Binding Capacity 280 mcg/dL (250-425); Unsaturated Iron Binding 188 (225-295)
== END | disposition home or self-care (01) ==
LOC: SCTO 07:45
PROVIDERS: PCP Family Medicine; Referring Provider Nurse Practitioner Family; Visit Provider Nurse Practitioner Family
DX: D64.9 Anemia, unspecified (principal)
CPT/HCPCS: 36415; 80053; 82607; 82728; 82746; 83540; 83550; 85025; 85046

== ENCOUNTER 2025-05-24 10:14 | Outpatient (RCR) | payer MEDICARE, MEDICAID, SELFPAY | END 2025-05-30 23:59 | disposition home or self-care (01) | LOC: SCTC 10:14 | PROVIDERS: PCP Family Medicine; Referring Provider Family Medicine; Visit Provider Nurse Practitioner Family | DX: D56.9 Thalassemia, unspecified (principal); R79.0 Abnormal level of blood mineral; D58.2 Other hemoglobinopathies | CPT/HCPCS: 99212; G0463 ==

== ENCOUNTER → 2025-05-25 | Outpatient (CLI) | payer MEDICARE, MEDICAID, SELFPAY | END | disposition home or self-care (01) | LOC: SDIM 05-26 07:32 | PROVIDERS: PCP Family Medicine; Referring Provider Nurse Practitioner Family; Visit Provider Nurse Practitioner Family | DX: I08.3 Combined rheumatic disorders of mitral, aortic and tricuspid valves (principal) | CPT/HCPCS: 93306 ==

== ENCOUNTER → 2025-06-22 | Outpatient (CLI) | payer MEDICARE, MEDICAID, SELFPAY ==
--- NOTE | 2025-06-22 10:30 | XR_ITS ---
Examination: Ultrasound liver Elastography Date and time: June 22, 2025 1027 hours INDICATIONS: Anemia, iron overload, diffuse Diffuse iron deposition in the liver on MRI examination FINDINGS: Liver 16.3 cm irregular contour fatty infiltration Normal hepatopedal portal venous flow Patent hepatic veins Tissues stiffness average 1.0 m/s normal range IMPRESSION: Tissue stiffness average 1.0 m/s normal range
== END | disposition home or self-care (01) ==
LOC: CDIM 10:11
PROVIDERS: PCP Family Medicine; Referring Provider Nurse Practitioner Family; Visit Provider Nurse Practitioner Family
DX: D64.9 Anemia, unspecified (principal)
CPT/HCPCS: 76981

== ENCOUNTER → 2025-06-27 | Outpatient (CLI) | payer MEDICARE, MEDICAID, SELFPAY ==
[2025-06-27 08:33] LABS: Basophils # (Auto) 0.0 Thou/mm3 (0.0-0.2); Basophils % (Auto) 0 % (0-2.5); Eosinophils # (Auto) 0.2 Thou/mm3 (0.0-0.5); Eosinophils % (Auto) 3 % (0-10); Hematocrit 32.4 % (36.0-46.0); Hemoglobin 9.3 g/dL (12.0-16.0); Immature Granulocytes Auto 0.01 Thou/mm3 (0.00-0.00); Lymphocytes # (Auto) 2.0 Thou/mm3 (1.0-4.8); Lymphocytes % (Auto) 38 % (10-50); Mean Corpuscular HGB Conc 28.7 g/dl (31.0-37.0); Mean Corpuscular Hemoglobin 18.6 pg (25.0-35.0); Mean Corpuscular Volume 65 fL (80-100); Monocytes # (Auto) 0.4 Thou/mm3 (0.0-0.8); Monocytes % (Auto) 8 % (0-12); Neutrophils # (Auto) 2.7 Thou/mm3 (1.8-7.7); Neutrophils % (Auto) 51 % (37-80); Nucleated Red Blood Cell # 0.00 Thou/mm3 (0.00-0.00); Nucleated Red Blood Cell % 0 /100 WBC (0); Platelet Count 249 Thou/mm3 (140-440); RDW Standard Deviation 50.0 fL (36.4-46.3); Red Blood Count 4.99 Miln/mm3 (4.00-5.20); White Blood Count 5.3 Thou/mm3 (3.6-11.0)
[2025-06-27 08:47] LABS: AFP Non-Pregnant 1.80 ng/mL (<8.10)
[2025-06-27 08:50] LABS: Alanine Aminotransferase 18 U/L (10-49); Albumin, Serum 4.3 gm/dL (3.4-4.8); Albumin/Globulin Ratio 1.4 (1.2-2.2); Alkaline Phosphatase 50 U/L (46-116); Anion Gap 10 (7-16); Aspartate Amino Transferase 22 U/L (0-34); BUN/Creatinine Ratio 19 Ratio (12-20); Bilirubin,Total 2.4 mg/dL (0.3-1.2); Blood Urea Nitrogen 13 mg/dL (9-23); Calcium 9.1 mg/dL (8.3-10.6); Calcium (Corrected) 9.1 mg/dL (8.5-10.1); Carbon Dioxide 28.5 mMol/L (20.0-31.0); Chloride 105 mMol/L (98-107); Creatinine (Component) 0.7 mg/dL (0.6-1.3); Free T4 (Free Thyroxine) 1.19 ng/dL (0.89-1.76); Globulin 3.1 gm/dL (2.3-3.5); Glucose 123 mg/dL (74-106); LDH (Lactate Dehydrogenase) 181 U/L (120-246); Osmolality,Calculated 286 (275-295); Potassium 4.0 mMol/L (3.4-5.1); Sodium 143 mMol/L (136-145); Thyroid Stimulating Hormone 2.62 uIU/mL (0.55-4.78); Total Protein 7.4 gm/dL (5.7-8.2); eGFR > 60 See Note
[2025-06-27 08:51] LABS: Ferritin 512 ng/mL (7.3-270.7); Iron 146 mcg/dL (50-170); Percent Iron Saturation 50 % (20-55); Total Iron Binding Capacity 288 mcg/dL (250-425); Unsaturated Iron Binding 142 (225-295)
[2025-06-27 08:57] LABS: Glucose Estimated Average 91 mg/dL (80-131); Hemoglobin A1C 4.8 % Hgb (4.8-6.0)
== END | disposition home or self-care (01) ==
PROVIDERS: PCP Family Medicine; Referring Provider Nurse Practitioner Family; Visit Provider Nurse Practitioner Family
DX: D64.9 Anemia, unspecified (principal)
CPT/HCPCS: 36415; 80053; 82105; 82533; 82728; 83010; 83036; 83540; 83550; 83615; 84439; 84443; 85025

== ENCOUNTER 2025-06-29 10:34 | Outpatient (RCR) | payer MEDICARE, MEDICAID, SELFPAY | END 2025-06-30 23:59 | disposition home or self-care (01) | LOC: SCTC 10:34 | PROVIDERS: PCP Family Medicine; Referring Provider Family Medicine; Visit Provider Nurse Practitioner Family | DX: D56.0 Alpha thalassemia (principal); L73.9 Follicular disorder, unspecified | CPT/HCPCS: 99212; G0463 ==

== ENCOUNTER → 2025-07-29 | Outpatient (CLI) | payer MEDICARE, MEDICAID, SELFPAY ==
[2025-07-29 08:44] LABS: Basophils # (Auto) 0.0 Thou/mm3 (0.0-0.2); Basophils % (Auto) 0 % (0-2.5); Eosinophils # (Auto) 0.1 Thou/mm3 (0.0-0.5); Eosinophils % (Auto) 3 % (0-10); Hematocrit 33.3 % (36.0-46.0); Hemoglobin 9.4 g/dL (12.0-16.0); Immature Granulocytes Auto 0.02 Thou/mm3 (0.00-0.00); Immature Reticulocyte Fraction 26.7 % (3.0-15.9); Lymphocytes # (Auto) 1.8 Thou/mm3 (1.0-4.8); Lymphocytes % (Auto) 36 % (10-50); Mean Corpuscular HGB Conc 28.2 g/dl (31.0-37.0); Mean Corpuscular Hemoglobin 19.3 pg (25.0-35.0); Mean Corpuscular Volume 68 fL (80-100); Monocytes # (Auto) 0.4 Thou/mm3 (0.0-0.8); Monocytes % (Auto) 7 % (0-12); Neutrophils # (Auto) 2.7 Thou/mm3 (1.8-7.7); Neutrophils % (Auto) 54 % (37-80); Nucleated Red Blood Cell # 0.00 Thou/mm3 (0.00-0.00); Nucleated Red Blood Cell % 0 /100 WBC (0); Platelet Count 273 Thou/mm3 (140-440); RDW Standard Deviation 58.3 fL (36.4-46.3); Red Blood Count 4.87 Miln/mm3 (4.00-5.20); Reticulocyte % (Auto) 3.7 % (0.5-1.5); Reticulocyte Absolute Auto 182.1 Biln/L (25.0-75.0); Reticulocyte Hgb Content 19.6 pg (28.0-35.0); White Blood Count 5.1 Thou/mm3 (3.6-11.0)
[2025-07-29 09:05] LABS: Alanine Aminotransferase 11 U/L (10-49); Albumin, Serum 4.4 gm/dL (3.4-4.8); Albumin/Globulin Ratio 1.6 (1.2-2.2); Alkaline Phosphatase 49 U/L (46-116); Anion Gap 10 (7-16); Aspartate Amino Transferase 17 U/L (0-34); BUN/Creatinine Ratio 20 Ratio (12-20); Bilirubin,Total 2.5 mg/dL (0.3-1.2); Blood Urea Nitrogen 12 mg/dL (9-23); Calcium 9.7 mg/dL (8.3-10.6); Calcium (Corrected) 9.7 mg/dL (8.5-10.1); Carbon Dioxide 28.7 mMol/L (20.0-31.0); Chloride 105 mMol/L (98-107); Creatinine (Component) 0.6 mg/dL (0.6-1.3); Globulin 2.8 gm/dL (2.3-3.5); Glucose 126 mg/dL (74-106); Osmolality,Calculated 288 (275-295); Potassium 3.6 mMol/L (3.4-5.1); Sodium 144 mMol/L (136-145); Total Protein 7.2 gm/dL (5.7-8.2); eGFR > 60 See Note
[2025-07-29 09:07] LABS: Ferritin 413 ng/mL (7.3-270.7); Folate 20.70 ng/mL (>5.38); Iron 121 mcg/dL (50-170); Percent Iron Saturation 46 % (20-55); Total Iron Binding Capacity 260 mcg/dL (250-425); Unsaturated Iron Binding 139 (225-295); Vitamin B12 599 pg/mL (211-911)
== END | disposition home or self-care (01) ==
LOC: SCTO 07:02
PROVIDERS: PCP Family Medicine; Referring Provider Nurse Practitioner Family; Visit Provider Nurse Practitioner Family
DX: D64.9 Anemia, unspecified (principal)
CPT/HCPCS: 36415; 80053; 82607; 82728; 82746; 83540; 83550; 85025; 85046

== ENCOUNTER → 2025-08-09 | Outpatient (CLI) | payer MEDICARE, MEDICAID, SELFPAY ==
--- NOTE | 2025-08-09 09:30 | ECHO_ITS ---
Transthoracic Echo Report Ht (in): 60 Wt (lb): 138 Exam Location: Echo Lab Status: Preadmit Superintendent Pressure: Jody Barnett Indications: Procedure Performed: BP: 150 / 76 HR: 62 MEASUREMENTS (Male / Female) Normal Values 2D ECHO LV Diastolic Diameter PLAX 4.0 cm 4.2 - 5.9 / 3.9 - 5.3 cm LV Systolic Diameter PLAX 2.5 cm IVS Diastolic Thickness 1.3 cm 0.6 - 1.0 / 0.6 - 0.9 cm LVPW Diastolic Thickness 1.2 cm 0.6 - 1.0 / 0.6 - 0.9 cm LV Relative Wall Thickness 0.6 LVOT Diameter 1.9 cm LA Volume Index 44.1 cm?/m? 16 - 28 cm?/m? Ascending Aorta Diameter 3.2 cm M-MODE AV Cusp Separation MM 0.7 cm DOPPLER AV Peak Velocity 189.0 cm/s AV Peak Gradient 14.3 mmHg AV Mean Gradient 8.0 mmHg AV Velocity Time Integral 45.8 cm AI Peak Velocity 418.0 cm/s AI Peak Gradient 69.9 mmHg AI Pressure Half Time 594.0 ms LVOT Peak Velocity 117.0 cm/s LVOT Peak Gradient 5.5 mmHg LVOT Velocity Time Integral 33.4 cm LVOT Cardiac Index 3566.5 cm?/min?m? AV Area Cont Eq vti 2.1 cm? AV Area Cont Eq pk 1.8 cm? MV Area PHT 3.1 cm? Mitral E Point Velocity 72.9 cm/s Mitral A Point Velocity 56.0 cm/s Mitral E to A Ratio 1.3 LV E' Lateral Velocity 7.0 cm/s Mitral E to LV E' Lateral Ratio 10.5 LV E' Septal Velocity 4.8 cm/s Mitral E to LV E' Septal Ratio 15.2 TR Peak Velocity 272.7 cm/s TR Peak Gradient 29.7 mmHg PV Peak Velocity 109.0 cm/s PV Peak Gradient 4.8 mmHg FINDINGS Left Ventricle Normal left ventricular size, wall thickness, systolic function with no obvious regional wall motion abnormalities. Mild left ventricular hypertrophy. Normal left ventricular diastolic filling pattern for age. The ejection fraction is visually estimated at 65 %. Right Ventricle The right ventricle is mildly enlarged size . Left Atrium The left atrial cavity size is severely increased. Right Atrium The right atrial cavity size is severely increased. Atrial Septum The interatrial septum appears normal with no evidence of a shunt. Aorta The aorta is normal by two-dimensional, color flow and Doppler interrogation. Mitral Valve The mitral valve annulus is moderately calcified without stenosis. There is trace mitral regurgitation. Aortic Valve The aortic valve is trileaflet and moderataely calcified without stenosis. There is mild aortic regurgitation. Tricuspid Valve The tricuspid valve is normal by two-dimensional, color flow and Doppler interrogation. There is mild tricuspid valve regurgitation. Pulmonic Valve The pulmonic valve is not well visualized. Moderate pulmonic valve regurgitation. Vessels The pulmonary artery appears normal. The inferior vena cava pulmonary and hepatic veins appear normal. Pericardium The pericardium is normal by two-dimensional imaging. There is no significant pericardial effusion. CONCLUSIONS Indications: Anemia, unspecified Normal LV size and function. Estimated EF 60-65%. Grade 1 diastolic dysfunction. Mild LVH. Normal RV size and function mildly elevated RVSP. Moderate MAC. Mild MR, mild TR. mild to moderate PI Moderate AOV calcification with moderate aortic valve sclerosis without stenosis.. Mild AI No pericardial Effusion. Reviewed prior echo 05/25/25 Armando Bashir (Electronically Signed) Final Date: 10 August 2025 03:59
== END | disposition home or self-care (01) ==
LOC: SDIM 09:02
PROVIDERS: Referring Provider Nurse Practitioner Family; Visit Provider Nurse Practitioner Family
DX: I50.30 Unspecified diastolic (congestive) heart failure (principal); I08.1 Rheumatic disorders of both mitral and tricuspid valves
CPT/HCPCS: 93306

== ENCOUNTER → 2025-08-15 | Outpatient (CLI) | payer MEDICARE, MEDICAID, SELFPAY ==
[2025-08-15 17:44] LABS: Basophils # (Auto) 0.0 Thou/mm3 (0.0-0.2); Basophils % (Auto) 0 % (0-2.5); Eosinophils # (Auto) 0.2 Thou/mm3 (0.0-0.5); Eosinophils % (Auto) 3 % (0-10); Hematocrit 31.8 % (36.0-46.0); Hemoglobin 9.0 g/dL (12.0-16.0); Immature Granulocytes Auto 0.03 Thou/mm3 (0.00-0.00); Immature Reticulocyte Fraction 23.1 % (3.0-15.9); Lymphocytes # (Auto) 2.6 Thou/mm3 (1.0-4.8); Lymphocytes % (Auto) 38 % (10-50); Mean Corpuscular HGB Conc 28.3 g/dl (31.0-37.0); Mean Corpuscular Hemoglobin 18.8 pg (25.0-35.0); Mean Corpuscular Volume 66 fL (80-100); Monocytes # (Auto) 0.5 Thou/mm3 (0.0-0.8); Monocytes % (Auto) 7 % (0-12); Neutrophils # (Auto) 3.4 Thou/mm3 (1.8-7.7); Neutrophils % (Auto) 51 % (37-80); Nucleated Red Blood Cell # 0.02 Thou/mm3 (0.00-0.00); Nucleated Red Blood Cell % 0 /100 WBC (0); Platelet Count 244 Thou/mm3 (140-440); RDW Standard Deviation 52.6 fL (36.4-46.3); Red Blood Count 4.80 Miln/mm3 (4.00-5.20); Reticulocyte % (Auto) 3.8 % (0.5-1.5); Reticulocyte Absolute Auto 181.4 Biln/L (25.0-75.0); Reticulocyte Hgb Content 19.9 pg (28.0-35.0); White Blood Count 6.7 Thou/mm3 (3.6-11.0)
[2025-08-15 18:01] LABS: Alanine Aminotransferase 12 U/L (10-49); Albumin, Serum 4.6 gm/dL (3.4-4.8); Albumin/Globulin Ratio 1.8 (1.2-2.2); Alkaline Phosphatase 48 U/L (46-116); Anion Gap 10 (7-16); Aspartate Amino Transferase 20 U/L (0-34); BUN/Creatinine Ratio 23 Ratio (12-20); Bilirubin,Total 2.1 mg/dL (0.3-1.2); Blood Urea Nitrogen 14 mg/dL (9-23); Calcium 9.7 mg/dL (8.3-10.6); Calcium (Corrected) 9.7 mg/dL (8.5-10.1); Carbon Dioxide 29.4 mMol/L (20.0-31.0); Chloride 104 mMol/L (98-107); Creatinine (Component) 0.6 mg/dL (0.6-1.3); Globulin 2.5 gm/dL (2.3-3.5); Glucose 180 mg/dL (74-106); Osmolality,Calculated 290 (275-295); Potassium 3.7 mMol/L (3.4-5.1); Sodium 143 mMol/L (136-145); Total Protein 7.1 gm/dL (5.7-8.2); eGFR > 60 See Note
[2025-08-15 20:26] LABS: Ferritin 399 ng/mL (7.3-270.7); Iron 90 mcg/dL (50-170); Percent Iron Saturation 25 % (20-55); Total Iron Binding Capacity 351 mcg/dL (250-425); Unsaturated Iron Binding 261 (225-295)
== END | disposition home or self-care (01) ==
LOC: SCTO 14:38
PROVIDERS: PCP Family Medicine; Referring Provider Nurse Practitioner Family; Visit Provider Nurse Practitioner Family
DX: D64.9 Anemia, unspecified (principal)
CPT/HCPCS: 36415; 80053; 82728; 83540; 83550; 85025; 85046

== ENCOUNTER → 2025-08-29 | Outpatient (CLI) | payer MEDICARE, MEDICAID, SELFPAY ==
[2025-08-29 08:23] LABS: Alanine Aminotransferase 12 U/L (10-49); Albumin, Serum 4.6 gm/dL (3.4-4.8); Albumin/Globulin Ratio 1.5 (1.2-2.2); Alkaline Phosphatase 47 U/L (46-116); Anion Gap 6 (7-16); Aspartate Amino Transferase 20 U/L (0-34); BUN/Creatinine Ratio 18 Ratio (12-20); Bilirubin,Total 2.7 mg/dL (0.3-1.2); Blood Urea Nitrogen 11 mg/dL (9-23); Calcium 9.6 mg/dL (8.3-10.6); Calcium (Corrected) 9.6 mg/dL (8.5-10.1); Carbon Dioxide 28.6 mMol/L (20.0-31.0); Chloride 106 mMol/L (98-107); Creatinine (Component) 0.6 mg/dL (0.6-1.3); Globulin 3.1 gm/dL (2.3-3.5); Glucose 114 mg/dL (74-106); Osmolality,Calculated 281 (275-295); Potassium 3.9 mMol/L (3.4-5.1); Sodium 141 mMol/L (136-145); Total Protein 7.7 gm/dL (5.7-8.2); eGFR > 60 See Note
[2025-08-29 08:25] LABS: Basophils # (Auto) 0.0 Thou/mm3 (0.0-0.2); Basophils % (Auto) 0 % (0-2.5); Eosinophils # (Auto) 0.2 Thou/mm3 (0.0-0.5); Eosinophils % (Auto) 4 % (0-10); Hematocrit 33.4 % (36.0-46.0); Hemoglobin 9.4 g/dL (12.0-16.0); Immature Granulocytes Auto 0.02 Thou/mm3 (0.00-0.00); Lymphocytes # (Auto) 1.8 Thou/mm3 (1.0-4.8); Lymphocytes % (Auto) 34 % (10-50); Mean Corpuscular HGB Conc 28.1 g/dl (31.0-37.0); Mean Corpuscular Hemoglobin 19.3 pg (25.0-35.0); Mean Corpuscular Volume 69 fL (80-100); Monocytes # (Auto) 0.4 Thou/mm3 (0.0-0.8); Monocytes % (Auto) 8 % (0-12); Neutrophils # (Auto) 2.7 Thou/mm3 (1.8-7.7); Neutrophils % (Auto) 54 % (37-80); Nucleated Red Blood Cell # 0.00 Thou/mm3 (0.00-0.00); Nucleated Red Blood Cell % 0 /100 WBC (0); Platelet Count 315 Thou/mm3 (140-440); RDW Standard Deviation 54.2 fL (36.4-46.3); Red Blood Count 4.87 Miln/mm3 (4.00-5.20); White Blood Count 5.1 Thou/mm3 (3.6-11.0)
[2025-08-29 08:33] LABS: Ferritin 388 ng/mL (7.3-270.7); Iron 119 mcg/dL (50-170); Percent Iron Saturation 31 % (20-55); Total Iron Binding Capacity 376 mcg/dL (250-425); Unsaturated Iron Binding 257 (225-295)
== END | disposition home or self-care (01) ==
LOC: SCTO 07:04
PROVIDERS: PCP Family Medicine; Referring Provider Nurse Practitioner Family; Visit Provider Nurse Practitioner Family
DX: D64.9 Anemia, unspecified (principal)
CPT/HCPCS: 36415; 80053; 82728; 83540; 83550; 85025

== ENCOUNTER 2025-08-30 10:00 | Outpatient (RCR) | payer MEDICARE, MEDICAID, SELFPAY | END 2025-08-30 23:59 | disposition home or self-care (01) | LOC: SCTC 10:00 | PROVIDERS: PCP Family Medicine; Referring Provider Family Medicine; Visit Provider Internal Medicine Hematology & Oncology | DX: D56.9 Thalassemia, unspecified (principal); E83.119 Hemochromatosis, unspecified | CPT/HCPCS: 99212; G0463 ==

== ENCOUNTER → 2025-09-12 | Outpatient (CLI) | payer MEDICARE, MEDICAID, SELFPAY ==
[2025-09-12 08:44] LABS: Basophils # (Auto) 0.0 Thou/mm3 (0.0-0.2); Basophils % (Auto) 1 % (0-2.5); Eosinophils # (Auto) 0.3 Thou/mm3 (0.0-0.5); Eosinophils % (Auto) 4 % (0-10); Hematocrit 33.1 % (36.0-46.0); Hemoglobin 9.4 g/dL (12.0-16.0); Immature Granulocytes Auto 0.02 Thou/mm3 (0.00-0.00); Lymphocytes # (Auto) 1.8 Thou/mm3 (1.0-4.8); Lymphocytes % (Auto) 31 % (10-50); Mean Corpuscular HGB Conc 28.4 g/dl (31.0-37.0); Mean Corpuscular Hemoglobin 18.9 pg (25.0-35.0); Mean Corpuscular Volume 67 fL (80-100); Monocytes # (Auto) 0.5 Thou/mm3 (0.0-0.8); Monocytes % (Auto) 9 % (0-12); Neutrophils # (Auto) 3.3 Thou/mm3 (1.8-7.7); Neutrophils % (Auto) 55 % (37-80); Nucleated Red Blood Cell # 0.00 Thou/mm3 (0.00-0.00); Nucleated Red Blood Cell % 0 /100 WBC (0); Platelet Count 295 Thou/mm3 (140-440); RDW Standard Deviation 51.9 fL (36.4-46.3); Red Blood Count 4.98 Miln/mm3 (4.00-5.20); White Blood Count 5.9 Thou/mm3 (3.6-11.0)
[2025-09-12 08:49] LABS: Alanine Aminotransferase 12 U/L (10-49); Albumin, Serum 4.7 gm/dL (3.4-4.8); Albumin/Globulin Ratio 1.5 (1.2-2.2); Alkaline Phosphatase 52 U/L (46-116); Anion Gap 10 (7-16); Aspartate Amino Transferase 19 U/L (0-34); BUN/Creatinine Ratio 15 Ratio (12-20); Bilirubin,Total 2.1 mg/dL (0.3-1.2); Blood Urea Nitrogen 12 mg/dL (9-23); Calcium 9.8 mg/dL (8.3-10.6); Calcium (Corrected) 9.8 mg/dL (8.5-10.1); Carbon Dioxide 29.2 mMol/L (20.0-31.0); Chloride 103 mMol/L (98-107); Creatinine (Component) 0.8 mg/dL (0.6-1.3); Globulin 3.2 gm/dL (2.3-3.5); Glucose 140 mg/dL (74-106); Osmolality,Calculated 284 (275-295); Potassium 3.8 mMol/L (3.4-5.1); Sodium 142 mMol/L (136-145); Total Protein 7.9 gm/dL (5.7-8.2); eGFR > 60 See Note
[2025-09-12 08:56] LABS: Ferritin 432 ng/mL (7.3-270.7); Iron 117 mcg/dL (50-170); Percent Iron Saturation 31 % (20-55); Total Iron Binding Capacity 366 mcg/dL (250-425); Unsaturated Iron Binding 249 (225-295)
== END | disposition home or self-care (01) ==
PROVIDERS: PCP Nurse Practitioner Family; Referring Provider Nurse Practitioner Family; Visit Provider Nurse Practitioner Family
DX: D64.9 Anemia, unspecified (principal)
CPT/HCPCS: 36415; 80053; 82728; 83540; 83550; 85025

== ENCOUNTER → 2025-09-26 | Outpatient (CLI) | payer MEDICARE, MEDICAID, SELFPAY ==
[2025-09-26 09:51] LABS: Basophils # (Auto) 0.1 Thou/mm3 (0.0-0.2); Basophils % (Auto) 1 % (0-2.5); Eosinophils # (Auto) 0.2 Thou/mm3 (0.0-0.5); Eosinophils % (Auto) 3 % (0-10); Hematocrit 34.2 % (36.0-46.0); Hemoglobin 9.7 g/dL (12.0-16.0); Immature Granulocytes Auto 0.02 Thou/mm3 (0.00-0.00); Lymphocytes # (Auto) 2.2 Thou/mm3 (1.0-4.8); Lymphocytes % (Auto) 32 % (10-50); Mean Corpuscular HGB Conc 28.4 g/dl (31.0-37.0); Mean Corpuscular Hemoglobin 19.5 pg (25.0-35.0); Mean Corpuscular Volume 69 fL (80-100); Monocytes # (Auto) 0.6 Thou/mm3 (0.0-0.8); Monocytes % (Auto) 9 % (0-12); Neutrophils # (Auto) 3.8 Thou/mm3 (1.8-7.7); Neutrophils % (Auto) 55 % (37-80); Nucleated Red Blood Cell # 0.00 Thou/mm3 (0.00-0.00); Nucleated Red Blood Cell % 0 /100 WBC (0); Platelet Count 304 Thou/mm3 (140-440); RDW Standard Deviation 56.9 fL (36.4-46.3); Red Blood Count 4.97 Miln/mm3 (4.00-5.20); White Blood Count 7.0 Thou/mm3 (3.6-11.0)
[2025-09-26 10:02] LABS: Alanine Aminotransferase 13 U/L (10-49); Albumin, Serum 4.6 gm/dL (3.4-4.8); Albumin/Globulin Ratio 1.5 (1.2-2.2); Alkaline Phosphatase 54 U/L (46-116); Anion Gap 9 (7-16); Aspartate Amino Transferase 22 U/L (0-34); BUN/Creatinine Ratio 19 Ratio (12-20); Bilirubin,Total 2.1 mg/dL (0.3-1.2); Blood Urea Nitrogen 13 mg/dL (9-23); Calcium 9.6 mg/dL (8.3-10.6); Calcium (Corrected) 9.6 mg/dL (8.5-10.1); Carbon Dioxide 29.6 mMol/L (20.0-31.0); Chloride 104 mMol/L (98-107); Creatinine (Component) 0.7 mg/dL (0.6-1.3); Globulin 3.0 gm/dL (2.3-3.5); Glucose 126 mg/dL (74-106); Osmolality,Calculated 287 (275-295); Potassium 3.8 mMol/L (3.4-5.1); Sodium 143 mMol/L (136-145); Total Protein 7.6 gm/dL (5.7-8.2); eGFR > 60 See Note
[2025-09-26 10:04] LABS: Ferritin 350 ng/mL (7.3-270.7); Iron 132 mcg/dL (50-170); Percent Iron Saturation 34 % (20-55); Total Iron Binding Capacity 385 mcg/dL (250-425); Unsaturated Iron Binding 253 (225-295)
== END | disposition home or self-care (01) ==
LOC: SCTO 08:46
PROVIDERS: PCP Family Medicine; Referring Provider Nurse Practitioner Family; Visit Provider Nurse Practitioner Family
DX: D64.9 Anemia, unspecified (principal)
CPT/HCPCS: 36415; 80053; 82728; 83540; 83550; 85025

== ENCOUNTER 2025-09-27 09:17 | Outpatient (RCR) | payer MEDICARE, MEDICAID, SELFPAY ==
--- NOTE | 2025-09-06 10:17 | CTCFLWUP_ITS ---
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 Patient tolerating well and responding well. 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 She had not started the previously discussed medication due to her prefering to complete vision and hearing tests. The patient reports no new symptoms or complaints during this visit. TShe has now been instructed to begin taking Jadunov 360 mg once daily with vitamin C 250 mg for iron chelation. The patient's overall health status appears stable, with no reported changes in functioning or new stressors. Regarding treatment adherence, the patient had not started the previously recommended medication as she was waiting for the completion of additional tests. She is now ready to begin the prescribed treatment regimen for iron chelation. Laboratory, Imaging, and Diagnostic Test Results - Date: 06/19/2024 - TSH: Within normal limits - T4: Within normal limits - Total cortisol: Within normal limits - AFP: Within normal limits - Date: 06/09/2025 - Echocardiogram: EF 65% (normal) - Date: 06/28/2025 - Audiology test: Completed PREVIOUS NOTES: She had a hemoglobin electrophoresis done in the past which showed abnormal hemoglobin of 18.4% on 05/03/2018. Alpha globin common mutation analysis assay was not done. 01/06/2019: Patient is in the clinic today for follow-up. She has alpha globin common mutation analysis done on 10/02/2018. 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 She does not have any children. Today she complains of gross hematuria that is been going on for last few days. She denies any abdominal pain. Denies any cough chest pain shortness of breath or leg cramps. 12/30/2018: Hemoglobin 9.7, MCV 67, WBC 6.6, platelets 260,000. 07/02/2019: Hemoglobin 9.3, MCV 70, WBC 9.8, platelets 247,000. 07/12/2020: Hemoglobin 9.6, MCV 70, WBC 6.4, platelets 256,000. 07/22/2022: Hemoglobin 9.2, MCV 68, WBC 6.5, ANC 3.5, platelets 277,000, ferritin 669, iron saturation 49%. 01/21/2023: Hemoglobin 8.9, MCV 67, WBC 6.1, ANC 3.3, platelets 275,000, creatinine 0.6. 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 Jadenu - 360 mg 3 tab Daily 2. losartan - 25 mg 1 tab Daily 3. metoprolol succinate - 25 mg tab Medications Last Reconciled by Marie Manzo MD on 09/06/2025 ALLERGIES: SULFA(SULFONAMIDE ANTIBIOTICS); IODINE-IODINE CONTAINING REVIEW OF SYSTEMS: A complete 14-point review of systems was performed and is negative except as noted in interval history. PHYSICAL EXAMINATION: VITAL SIGNS: Temperature?98.4, B/P?131/67, Oxygen?Saturation?97% Weight?138?lbs (Change?since?08/30/25:?2?lbs) PAIN: 0 - No pain ECOG Performance Status: 0 - Asymptomatic and fully active GENERAL APPEARANCE: Appears well, in no apparent distress, appropriately interactive. HEENT: Normocephalic, no temporal wasting, normal conjunctiva, no scleral icterus, normal hearing, lips without lesions, neck normal range of motion. CARDIOVASCULAR: Not assessed. PULMONARY: Normal respiratory effort, no respiratory distress or use of accessory muscles, speaking in full sentences, no tachypnea. EXTREMITIES: No pedal edema or cyanosis. SKIN: Normal skin appearance. NEUROLOGIC: Alert and oriented x4. PSHYCHIATRIC: Appropriate affect, mood normal, behavior normal, intact thought and speech. LABORATORY DATA: I have personally reviewed and interpreted each of the patient?s relevant lab tests, abnormal findings are below: Date 08/15/25 08/29/25 ??WHITE?BLOOD?COUNT?(Thou/mm3) ? 5.1 ??RED?BLOOD?COUNT?(Miln/mm3) ? 4.87 ??HEMOGLOBIN?(gm/dl) ? 9.4?L ??HEMATOCRIT?(%) ? 33.4?L ??PLATELET?COUNT?(Thou/mm3) ? 315 ??NEUTROPHILS?%,?AUTO?(%) ? 54 ??LYMPH?%,?AUTO?(%) ? 34 ??NEUTROPHILS,?AUTO?(Thou/mm3) ? 2.7 ??GLUCOSE,RANDOM?(mg/dL) ? 114?H ??BLOOD?UREA?NITROGEN?(mg/dL) ? 11 ??CREATININE?(mg/dL) ? 0.60 ??SODIUM?(mmol/L) ? 141 ??POTASSIUM?(mmol/L) ? 3.9 ??CHLORIDE?(mmol/L) ? 106 ??CrCl?(CandG)?(ml/min) ? 74.40 ??AST/SGOT?(Unit/L) ? 20 ??ALT/SGPT?(Unit/L) ? 12 ??ALKALINE?PHOSPHATASE?(Unit/L) ? 47 ??BILIRUBIN,?TOTAL?(mg/dL) ? 2.7?H ??PROTEIN?TOTAL?(gm/dl) ? 7.7 ??ALBUMIN,?SERUM?(gm/dl) ? 4.6 ??GLOBULIN?(gm/dl) ? 3.1 ??ALBUMIN/GLOBULIN?RATIO ? 1.5 ??CALCIUM,?SERUM?(mg/dL) ? 9.6 ??CALCIUM?SERUM?(CORRECTED)?(mg/dL) ? 9.6 ??RETICULOCYTE?ABSOLUTE?AUTO?(Biln/L) 181.4?H ? ??TOTAL?IRON?BINDING?CAP?(S*)?(mcg/dL) ? 376 ??UNBOUND?IBC?(mcg/dL) ? 257 ASSESSMENT/PLAN: Estrellita Alegre is a patient with thalassemia presenting for follow-up and management of iron overload. Thalassemia with iron overload Assessment: Patient has thalassemia requiring iron chelation therapy. Recent labs show stable ferritin levels, indicating persistent iron overload. Echocardiogram on June 09, 2025, showed normal ejection fraction of 65%. Liver function tests are within normal limits. MRI liver showed iron deposits. P greta's MRI in 2018 was normal Patient is on Jadunov 360 mg PO daily for iron chelation - Add Vitamin C 250 mg PO daily to enhance iron chelation -- Urinalysis to check for proteinuria - Monitor serum creatinine and iron and urine for protein bi-weekly - Pending cardiac CT for evaluation of cardiac iron deposits - Pending DEXA scan - Appointments with [facility] November 04, 2025 for second opinion and management on thalassemia management and November 11, 2025 for liver evaluation -Stop Jadenu after this cycle of treatment as patient has already been on goal Continue to monitor with CBC and ferritin every 4 weeks ORDERS: Order # Description [id number] CBC with Auto Diff [id number] Ferritin [id number] MRI + Abdomen RETURN TO CLINIC: I reviewed the diagnosis, prognosis, and recommended treatment/procedure options with the patient (and/or their legal community health program representative), including the potential benefits, risks, side effects and alternative therapies. We also discussed the option of no treatment and the possibility of clinical trial participation, if applicable. All questions were addressed, and they demonstrated understanding. They provided informed consent to proceed with the proposed plan of care. BILLING AND COMPLIANCE: I reviewed external records from providers outside my specialty as summarized above. I spent a total of 50 minutes on this patient?s care on the day of their visit excluding time spent related to any billed procedures. This time includes time spent with the patient as well as time spent documenting in the medical record, reviewing patients records and tests, obtaining history, placing orders, communicating with other healthcare professionals, counseling the patient, family or caregiver, and/or care coordination for the diagnoses above. Electronically Signed by: Wilfredo Robertson MD T: 10:15 AM CC: Jax?Austen,? PCP: Alexandr Daniel Referring: Alexandr Daniel This document was completed utilizing speech recognition software. Grammatical errors, random word insertions, pronoun errors, and incomplete sentences are an occasional consequence of this system due to software limitations, ambient noise, and hardware issues. Any formal questions or concerns about the content, text or information contained within the body of this dictation should be directly addressed to the provider for clarification.
== END 2025-09-30 23:59 | disposition home or self-care (01) ==
LOC: SCTC 09:17
PROVIDERS: PCP Family Medicine; Referring Provider Family Medicine; Visit Provider Nurse Practitioner Family
DX: D56.0 Alpha thalassemia (principal)
CPT/HCPCS: 99212; G0463

== ENCOUNTER → 2025-10-24 | Outpatient (CLI) | payer MEDICARE, MEDICAID, SELFPAY ==
[2025-10-24 08:38] LABS: Basophils # (Auto) 0.0 Thou/mm3 (0.0-0.2); Basophils % (Auto) 1 % (0-2.5); Eosinophils # (Auto) 0.2 Thou/mm3 (0.0-0.5); Eosinophils % (Auto) 2 % (0-10); Hematocrit 34.5 % (36.0-46.0); Hemoglobin 9.7 g/dL (12.0-16.0); Immature Granulocytes Auto 0.02 Thou/mm3 (0.00-0.00); Lymphocytes # (Auto) 2.0 Thou/mm3 (1.0-4.8); Lymphocytes % (Auto) 28 % (10-50); Mean Corpuscular HGB Conc 28.1 g/dl (31.0-37.0); Mean Corpuscular Hemoglobin 18.8 pg (25.0-35.0); Mean Corpuscular Volume 67 fL (80-100); Monocytes # (Auto) 0.7 Thou/mm3 (0.0-0.8); Monocytes % (Auto) 10 % (0-12); Neutrophils # (Auto) 4.1 Thou/mm3 (1.8-7.7); Neutrophils % (Auto) 59 % (37-80); Nucleated Red Blood Cell # 0.00 Thou/mm3 (0.00-0.00); Nucleated Red Blood Cell % 0 /100 WBC (0); Platelet Count 298 Thou/mm3 (140-440); RDW Standard Deviation 49.7 fL (36.4-46.3); Red Blood Count 5.16 Miln/mm3 (4.00-5.20); White Blood Count 7.0 Thou/mm3 (3.6-11.0)
[2025-10-24 09:04] LABS: Alanine Aminotransferase 14 U/L (10-49); Albumin, Serum 4.6 gm/dL (3.4-4.8); Albumin/Globulin Ratio 1.6 (1.2-2.2); Alkaline Phosphatase 55 U/L (46-116); Anion Gap 12 (7-16); Aspartate Amino Transferase 17 U/L (0-34); BUN/Creatinine Ratio 30 Ratio (12-20); Bilirubin,Total 2.1 mg/dL (0.3-1.2); Blood Urea Nitrogen 18 mg/dL (9-23); Calcium 9.2 mg/dL (8.3-10.6); Calcium (Corrected) 9.2 mg/dL (8.5-10.1); Carbon Dioxide 28.2 mMol/L (20.0-31.0); Chloride 104 mMol/L (98-107); Creatinine (Component) 0.6 mg/dL (0.6-1.3); Globulin 2.9 gm/dL (2.3-3.5); Glucose 159 mg/dL (74-106); Osmolality,Calculated 291 (275-295); Potassium 3.4 mMol/L (3.4-5.1); Sodium 144 mMol/L (136-145); Total Protein 7.5 gm/dL (5.7-8.2); eGFR > 60 See Note
[2025-10-24 09:08] LABS: Ferritin 349 ng/mL (7.3-270.7); Iron 113 mcg/dL (50-170); Percent Iron Saturation 32 % (20-55); Total Iron Binding Capacity 346 mcg/dL (250-425); Unsaturated Iron Binding 233 (225-295)
== END | disposition home or self-care (01) ==
PROVIDERS: PCP Family Medicine; Referring Provider Nurse Practitioner Family; Visit Provider Nurse Practitioner Family
DX: D64.9 Anemia, unspecified (principal)
CPT/HCPCS: 36415; 80053; 82728; 83540; 83550; 85025

== ENCOUNTER → 2025-10-24 | Outpatient (CLI) | payer MEDICARE, MEDICAID, SELFPAY ==
--- NOTE | 2025-10-24 16:00 | XR_ITS ---
EXAMINATION: MRI abdomen with intravenous contrast TECHNIQUE: MR axial coronal sagittal abdomen images post intravenous administration 20 cc gadolinium Date and time: October 24, 2025, 1809 hours, comparison March 09, 2025 INDICATIONS: Anemia unspecified FINDINGS: No abnormal liver or splenic enhancement No hydronephrosis Aorta normal size No pancreatic mass No ascites No adrenal mass No gallstones IMPRESSION: Recommend this patient return for noncontrast DWI images to best assess for iron deposition in the liver
== END | disposition home or self-care (01) ==
PROVIDERS: PCP Family Medicine; Referring Provider Internal Medicine Hematology & Oncology; Visit Provider Internal Medicine Hematology & Oncology
DX: D64.9 Anemia, unspecified (principal)
CPT/HCPCS: 74182; A9577

== ENCOUNTER 2025-10-25 14:03 | Outpatient (RCR) | payer MEDICARE, MEDICAID, SELFPAY | END 2025-10-30 23:59 | disposition home or self-care (01) | LOC: SCTC 14:03 | PROVIDERS: PCP Family Medicine; Referring Provider Family Medicine; Visit Provider Nurse Practitioner Family | DX: D56.0 Alpha thalassemia (principal) | CPT/HCPCS: 99212; G0463 ==

== ENCOUNTER → 2025-10-26 | Outpatient (CLI) | payer MEDICARE, MEDICAID, SELFPAY ==
[2025-10-26 08:42] LABS: Basophils # (Auto) 0.0 Thou/mm3 (0.0-0.2); Basophils % (Auto) 1 % (0-2.5); Eosinophils # (Auto) 0.2 Thou/mm3 (0.0-0.5); Eosinophils % (Auto) 3 % (0-10); Hematocrit 33.6 % (36.0-46.0); Hemoglobin 9.7 g/dL (12.0-16.0); Immature Granulocytes Auto 0.03 Thou/mm3 (0.00-0.00); Immature Reticulocyte Fraction 24.5 % (3.0-15.9); Lymphocytes # (Auto) 2.1 Thou/mm3 (1.0-4.8); Lymphocytes % (Auto) 27 % (10-50); Mean Corpuscular HGB Conc 28.9 g/dl (31.0-37.0); Mean Corpuscular Hemoglobin 19.1 pg (25.0-35.0); Mean Corpuscular Volume 66 fL (80-100); Monocytes # (Auto) 0.7 Thou/mm3 (0.0-0.8); Monocytes % (Auto) 9 % (0-12); Neutrophils # (Auto) 4.6 Thou/mm3 (1.8-7.7); Neutrophils % (Auto) 60 % (37-80); Nucleated Red Blood Cell # 0.00 Thou/mm3 (0.00-0.00); Nucleated Red Blood Cell % 0 /100 WBC (0); Platelet Count 306 Thou/mm3 (140-440); RDW Standard Deviation 49.1 fL (36.4-46.3); Red Blood Count 5.07 Miln/mm3 (4.00-5.20); Reticulocyte % (Auto) 3.3 % (0.5-1.5); Reticulocyte Absolute Auto 167.3 Biln/L (25.0-75.0); Reticulocyte Hgb Content 20.9 pg (28.0-35.0); White Blood Count 7.6 Thou/mm3 (3.6-11.0)
[2025-10-26 08:47] LABS: Alanine Aminotransferase 13 U/L (10-49); Albumin, Serum 4.5 gm/dL (3.4-4.8); Albumin/Globulin Ratio 1.6 (1.2-2.2); Alkaline Phosphatase 54 U/L (46-116); Anion Gap 8 (7-16); Aspartate Amino Transferase 17 U/L (0-34); BUN/Creatinine Ratio 27 Ratio (12-20); Bilirubin,Direct 0.7 mg/dL (0.0-0.3); Bilirubin,Total 2.3 mg/dL (0.3-1.2); Blood Urea Nitrogen 16 mg/dL (9-23); Calcium 9.0 mg/dL (8.3-10.6); Calcium (Corrected) 9.0 mg/dL (8.5-10.1); Carbon Dioxide 31.9 mMol/L (20.0-31.0); Chloride 105 mMol/L (98-107); Creatinine (Component) 0.6 mg/dL (0.6-1.3); Globulin 2.9 gm/dL (2.3-3.5); Glucose 148 mg/dL (74-106); LDH (Lactate Dehydrogenase) 146 U/L (120-246); Osmolality,Calculated 292 (275-295); Potassium 3.8 mMol/L (3.4-5.1); Sodium 145 mMol/L (136-145); Total Protein 7.4 gm/dL (5.7-8.2); eGFR > 60 See Note
[2025-10-31 13:54] LABS: Hemoglobinopathy Abn HGB 1 20.5 %; Hemoglobinopathy Hematocrit 38.8 % (35.9-46.0); Hemoglobinopathy Hemoglobin 9.8 g/dL (11.7-15.5); Hemoglobinopathy Hemoglobin A2 0.6 % (2.0-3.2); Hemoglobinopathy Hemoglobin F 0.0 % (LESS THAN 2.0); Hemoglobinopathy MCH 18.7 pg (27.0-33.0); Hemoglobinopathy MCV 74.2 fL (81.4-101.7); Hemoglobinopathy Red Blood Cnt 5.23 Million/uL (3.80-5.10)
[2025-11-01 07:08] LABS: Hemoglobinopathy Hemoglobin A 78.9 %; Hemoglobinopathy RDW 19.4 % (11.0-15.0)
== END | disposition home or self-care (01) ==
LOC: COPL 07:35 → SCTO 07:39
PROVIDERS: PCP Family Medicine; Referring Provider Nurse Practitioner Family; Visit Provider Nurse Practitioner Family
DX: D64.9 Anemia, unspecified (principal)
CPT/HCPCS: 36415; 80053; 82248; 83020; 83615; 85014; 85018; 85025; 85041; 85046; 86880